=== PATIENT | male | born 1985 | race Caucasian/White ===

== ENCOUNTER 2020-07-07 20:13 | Emergency (ER) | payer SELFPAY ==
--- NOTE | ~2020-07-07 | XR_ITS ---
EXAMINATION: XR chest 2V DATE: 07/07/2020 21:41 INDICATION: Tachycardia and hypertension TECHNIQUE: PA and lateral views of the chest are obtained. COMPARISON: 07/11/2013 FINDINGS: The lungs are free of acute opacities. There is no pleural effusion or pneumothorax. The ca rdiomediastinal silhouette is normal. The visualized bones and soft tissues are unremarkable. IMPRESSION: 1. No acute cardiopulmonary abnormality. Reviewed, dictated and finalized at location A.
[2020-07-07 20:22] VITALS: BP 132/77; PULSE 76; RESP 18; TEMP 37.1; O2SAT 100
--- NOTE | 2020-07-07 20:36 | ECG_ITS ---
Measurements Intervals [place] Rate: 76 P: 59 TN: 136 QRS: 39 QRSD: 94 T: 55 QT: 357 QTc: 402 Interpretive Statements SINUS RHYTHM ST ELEVATION IN DIFFUSE LEADS- PROBABLY EARLY REPOLARIZATION BASELINE ARTIFACT- II, III, AVR, AVL, AVF, V1 BORDERLINE ECG Electronically Signed On 07-08-2020 6:45:27 CDT by Dirk Lopez D.O.
--- NOTE | 2020-07-07 20:37 | ED.DIZZY ---
HPI - Dizziness General Chief Complaint: Dizziness Stated Complaint: dizzy - on new beta julius meds Time Seen by Provider: 07/07/20 20:17 Source: patient Mode of arrival: ambulatory Limitations: no limitations History of Present Illness HPI Narrative: Patient is a 35-year-old male complaining of sudden onset of dizziness that started while at work tonight. Patient states that he recently started a medication called propranolol for his elevated heart rate and thinks that he must have taken 2 doses close to each other which probably causes dizziness. Patient also states that he was having chest discomfort earlier when he was feeling dizzy but now resolved. Patient denies any cough, abdominal pain, nausea, vomiting, diaphoresis, fever or chills Related Data Allergies Allergy/AdvReac Type Severity Reaction Status Date / Time No Known Allergies Allergy Mild Verified 05/06/13 14:54 Review of Systems Review of Systems: All systems reviewed & are unremarkable except as noted in HPI and below Constitutional: Constitutional: Denies body ache(s), Denies chills, Denies excessive sweating, Denies fatigue, Denies fever(s), Denies headache(s), Denies lethargy, Denies malaise, Denies weakness and Denies weight loss Eyes: Eyes: Denies blurry vision, Denies change in vision and Denies loss of vision ENT: Denies ear discharge, Denies headache(s), Denies lip swelling, Denies epistaxis, Denies nasal congestion, Denies neck pain, Denies throat swelling and Denies tongue swelling Cardiovascular: Cardiovascular: Denies diaphoresis, Denies rapid heart rate, Denies edema, Denies irregular heart rhythm, Denies lightheadedness, Denies palpitations, Denies dyspnea and Denies dyspnea on exertion Respiratory: Respiratory: Denies chest congestion, Denies cough, Denies hemoptysis, Denies dyspnea and Denies dyspnea on exertion Gastrointestinal: Gastrointestinal: Denies abdominal pain, Denies melena, Denies hematochezia, Denies diarrhea, Denies nausea, Denies vomiting and Denies hematemesis Musculoskeletal: Musculoskeletal: Denies abnormal gait, Denies deformity, Denies joint swelling, Denies limited range of motion, Denies neck pain and Denies numbness Neurologic: Denies Abnormal speech present, Denies abnormal gait, Denies confusion, Denies headache(s), Denies focal weakness, Denies loss of vision, Denies numbness, Denies Other visual disturbances, Denies Sensory deficit (Neuro) and Denies weakness Psychiatric: Psychiatric: Denies confusion, Denies depression, Denies auditory hallucinations, Denies homicidal ideation and Denies suicidal ideation Endocrine: Endocrine: Denies cold intolerance, Denies excessive sweating, Denies fatigue, Denies heat intolerance and Denies palpitations Hematologic/Lymphatic: Hematologic/Lymphatic: Denies easy bleeding and Denies easy bruising Allergic/Immunologic: Allergic/Immunologic: Denies lip swelling, Denies throat swelling and Denies tongue swelling PMFSH Comments Past medical history: Tachycardia, PTSD Family history: Negative for MA or coronary artery disease Social history: Vapes, non-smoker, no EtOH or drug use. Exam Const: General: cooperative, healthy appearing, comfortable, no acute distress, well developed, alert and awake; No confusion Orientation/consciousness: oriented to person, oriented to place, oriented to time, patient oriented x3 and No confusion Limitations: no limitations HENMT: Head: normal to inspection, normocephalic and atraumatic Ears: hearing grossly normal bilaterally, TM normal on the right and TM normal on the left General nose exam: Normal external nose present, Normal nares present and No nasal discharge present Face and sinus: normal facial exam Mouth: Yes Normal oral and palatal mucosa present, Yes lip normal, Yes tongue normal and Yes oropharynx normal Throat: posterior oropharynx normal, tonsils normal and uvula midline Eyes: General: appearance normal, both eyes and all related structure
--- NOTE | 2020-07-07 21:01 | PC.NURSE ---
pt refused labs and ekg.
[2020-07-07] MEDS: SODIUM CHLORIDE 0.9% IV 1,000 ML 999 ML IV CONT (22:14)
[2020-07-07 22:23] LABS: Basophils Percent Auto 0.4 % (0.2-1.2); Eosinophils Absolute Auto 0.1 K/mm3 (0-0.3); Eosinophils Percent Auto 1.9 % (0-4.4); Hematocrit 41.6 % (42.0-52.0); Hemoglobin 14.1 g/dL (14.0-18.0); Immature Granulocyte Absolute 0.02 K/mm3 (0.00-0.031); Immature Granulocyte Percent A 0.3 % (0-0.5); Lymphocytes Absolute Auto 2.02 K/mm3 (0.9-3.2); Lymphocytes Percent Auto 28.9 % (18.3-44.2); Mean Corpuscular HGB Conc 33.9 g/dl (32-36); Mean Corpuscular Hemoglobin 33.9 pg (26-34); Mean Platelet Volume 10.9 fl (7.4-10.4); Monocytes Absolute Auto 0.6 K/mm3 (0.1-0.6); Monocytes Percent Auto 8.3 % (2.6-8.5); Neutrophils Absolute Auto 4.2 K/mm3 (1.3-6.7); Neutrophils Percent Auto 60.2 % (45.5-73.1); Platelet Count Result 279 k/mm3 (150-375); Red Blood Count 4.16 M/mm3 (4.6-6.20); Red Cell Distribution Width 14.1 % (11.5-14.5)
[2020-07-07 22:38] VITALS: BP 130/74; PULSE 74; RESP 20; O2SAT 98
[2020-07-07 22:46] LABS: Troponin I < 0.012 ng/mL (0.000-0.034)
[2020-07-07 23:06] LABS: Anion Gap 4 mmol/L (8-16); Blood Urea Nitrogen 15 mg/dL (9-20); Calcium 8.4 mg/dL (8.4-10.2); Carbon Dioxide 31 mmol/L (22-30); Chloride 104 mmol/L (98-107); Estimated CRCL calculation 104 ml/min; Estimated Glomerular Filt Rate > 60; Glucose 92 mg/dL (75-110); Potassium 4.2 mmol/L (3.4-5.0); Sodium 139 mmol/L (137-145)
[2020-07-07 23:34] VITALS: BP 131/74; PULSE 72; RESP 20; O2SAT 99
== END 2020-07-07 23:47 | disposition home or self-care (01) ==
PROVIDERS: Emergency Provider Emergency Medicine
DX: R42 Dizziness and giddiness (principal); R07.89 Other chest pain; F17.200 Nicotine dependence, unspecified, uncomplicated
CPT/HCPCS: 36415; 71046; 80048; 84484; 85025; 93005; 96360; 99284; J7030

== ENCOUNTER 2021-04-18 17:40 | Inpatient (IN) | payer MEDICAID, SELFPAY ==
[2021-04-18] VITALS (26 sets, daily range): BP systolic 108–152; BP diastolic 67–99; PULSE 57–74; RESP 13–24; TEMP 36.4; O2SAT 99–100
--- NOTE | ~2021-04-18 | XR_ITS ---
EXAMINATION: XR chest 1V portable EXAM DATE: 04/23/2021 09:04 INDICATION: Pneumothorax follow-up. TECHNIQUE: Portable AP frontal chest x-ray was obtained. Comparison is made to prior examination from 04/22/2021. FINDINGS: Possible identification of the pleural reflection at the left apex, tiny apical pneumothora x. Chest tube remains in position. Some left basilar scarring. Left lower lung zone nodule could be p atient's nipple. The lungs are otherwise clear. There are no pleural effusions. The cardiomediastin al silhouette is within normal limits. The bones and soft tissues are unremarkable. IMPRESSION: 1. Equivocal tiny left apical pneumothorax. Chest tube in position. 2. Left basilar subsegmental atelectasis. Reviewed, dictated and finalized at location B. GER PACKAGING
--- NOTE | ~2021-04-18 | XR_ITS ---
EXAMINATION: XR chest-chest tube insert/pos EXAM DATE: 04/18/2021 19:43 INDICATION: chest tube insertion . TECHNIQUE: Portable AP frontal chest x-ray was obtained. Comparison is made to prior examination from earlier same date. FINDINGS: Interval insertion of small caliber left-sided chest tube projecting over the hemithorax. T here is resolution of the previously seen pneumothorax, no pleural reflection identified. No focal ai rspace disease. Cardiomediastinal silhouette is normal. There are no osseous abnormalities identified . Small amount of left axillary gas. IMPRESSION: Resolution of left pneumothorax following chest tube insertion. Reviewed, dictated and finalized at location G. ICAL EDUCATOR
--- NOTE | ~2021-04-18 | XR_ITS ---
EXAMINATION: XR chest 1V portable EXAM DATE: 04/23/2021 13:43 INDICATION: s/p chest tube removal . TECHNIQUE: Portable AP frontal chest x-ray was obtained. Comparison is made to prior examination from earlier same date. FINDINGS: The left-sided chest tube has been removed. There is a minimal left apical pneumothorax, pl eural reflection has been indicated. Recommend additional follow-up. Small amount of left lower lobe subsegmental atelectasis. Cardiomediastinal silhouette is normal. There are no osseous abnormalities identified. IMPRESSION: Minimal left pneumothorax. Consider follow-up in 6-24 hours. Reviewed, dictated and finalized at location B. RINE PLANT OPERATOR
--- NOTE | ~2021-04-18 | XR_ITS ---
EXAMINATION: XR chest 1V portable EXAM DATE: 04/19/2021 17:50 INDICATION: Chest tube . Pneumothorax. TECHNIQUE: Portable AP frontal chest x-ray was obtained. Comparison is made to prior examination from 04/18/2021. FINDINGS: There is a left-sided chest tube with two side ports identified. The chest tube has retract ed compared to prior examination, but both side port still project over the pleural space. There has been redevelopment of small to moderate-sized left pneumothorax, about 1.5 cm between the pleural ref lections. No right pneumothorax. Small amount of left basilar linear atelectasis. The lungs are otherwise clear . Cardiomediastinal silhouette is normal. There are no osseous abnormalities identified. IMPRESSION: Some retraction of left-sided chest tube, but tip and side-port still within pleural cavi ty. Redevelopment of small to moderate left pneumothorax. Reviewed, dictated and finalized at location . ECTOR WATCH ASSEMBLY IMPRESSION: Some retraction of left-sided chest tube, but tip and side-port sti ll within pleural cavity. Redevelopment of small to moderate left pneumothorax.
--- NOTE | ~2021-04-18 | XR_ITS ---
XR chest-chest tube insert/pos DATE: 04/22/2021 03:30 INDICATION: Pneumothorax, chest tube TECHNIQUE: Portable upright AP chest on 04/22/2021 at 0325 hours COMPARISON: 04/21/2021 portable AP chest at 1024 hours FINDINGS: Left thoracostomy tube tip overlies the left apex. Minimal left pneumothorax. Mild subcutan eous emphysema of the left chest wall. There is mild bibasilar atelectasis, left greater than right. IMPRESSION: Left chest tube; small left pneumothorax, subcutaneous emphysema left chest wall Bibasilar atelectasis, left greater than right Reviewed, dictated and finalized at Location A. Reviewed, dictated and finalized at location A. ARCH PROFESSOR IMPRESSION: Left chest tube; small left pneumothorax, subcutaneous emphysema le ft chest wall Bibasilar atelectasis, left greater than right
--- NOTE | ~2021-04-18 | XR_ITS ---
EXAMINATION: XR chest 2V EXAM DATE: 04/18/2021 18:24 INDICATION: Left Sided Cp Started Today, Hx Spontaneous Pneumothorax . TECHNIQUE: Frontal and lateral projections of the chest obtained and reviewed. Comparison is made to prior examination from 07/07/2020. FINDINGS: There is a large left-sided pneumothorax. Right lung is clear. Cardiomediastinal silhouett e is normal. There are no osseous abnormalities identified. IMPRESSION: Large left-sided pneumothorax. I discussed the thorax with Fernando Dockery MD and Tasneem Russell at 04/18/2021 18:29 TALENT ACQUISITION ADMINISTRATOR. Reviewed, dictated and finalized at location G. NT ACQUISITION ADMINISTRATOR
--- NOTE | ~2021-04-18 | XR_ITS ---
XR chest 1V portable DATE: 04/21/2021 06:36 INDICATION: Left pneumothorax TECHNIQUE: Portable AP chest on 04/21/2021 at 0608 hours COMPARISON: 04/19/2021 portable AP chest at 2306 hours FINDINGS: Left thoracostomy tube is again noted, distal tip overlying lateral left apical region. No pneumothorax is evident. There is mild subcutaneous emphysema of the left chest wall. There is mild infiltrate and/atelectasis in the lower lung zones, primarily on the left. Normal heart size. No pleural effusion. IMPRESSION: Left thoracostomy tube; no detectable pneumothorax Mild subcutaneous emphysema of left chest wall Bibasilar infiltrate and/or atelectasis, primarily on the left Reviewed, dictated and finalized at location A. N PICKER
--- NOTE | ~2021-04-18 | XR_ITS ---
EXAMINATION: XR chest 1V portable EXAM DATE: 04/21/2021 10:37 INDICATION: Chest tube on water seal . TECHNIQUE: Portable AP frontal chest x-ray was obtained. Comparison is made to prior examination from 04/21/2021. FINDINGS: Left-sided chest tube is in position. No pleural reflection/pneumothorax identified. Scatte red left basilar linear atelectasis. Cardiomediastinal silhouette is normal. There are no pleural eff usions. There are no osseous abnormalities identified. IMPRESSION: No evidence of pneumothorax. Chest tube in position. Reviewed, dictated and finalized at location B. TENANCE EQUIPMENT OPERATOR
--- NOTE | ~2021-04-18 | XR_ITS ---
XR chest-chest tube insert/pos DATE: 04/19/2021 23:18 INDICATION: Chest tube placement TECHNIQUE: Portable AP chest on 04/19/2021 2306 hours COMPARISON: 04/19/2021 portable AP chest at 1747 hours FINDINGS: Left thoracostomy tube is then advanced further into the left apical area since 04/19/2021 w ith slight residual left pneumothorax. There is mild subcutaneous emphysema of the left chest and upp er abdominal wall. Normal heart size. No pulmonary vascular congestion or pleural effusion. Mild atelectasis and/or infiltrate in the left lower lung IMPRESSION: Left thoracostomy tube advanced into the left apical area; slight residual left pneumotho rax Reviewed, dictated and finalized at Location A. Reviewed, dictated and finalized at location A. ALMIC TECH IMPRESSION: Left thoracostomy tube advanced into the left apical area; slight r esidual left pneumothorax
--- NOTE | ~2021-04-18 | XR_ITS ---
EXAMINATION: XR chest 1V portable DATE: 04/24/2021 07:31 INDICATION: Left pneumothorax post chest tube removal TECHNIQUE: frontal and lateral views of the chest were obtained. COMPARISON: Chest radiograph dated 04/23/2021 FINDINGS: Negligible residual left pneumothorax at the lateral left upper lung zone projection maximal 2-3 mm p leural separation. Opacity at the left costophrenic angle and at the periphery of the left mid and lo wer lung zone most likely either atelectasis or minimal loculated pleural effusion. Right lung is minesh ar. No pulmonary edema or right-sided pleural effusion or pneumothorax. The cardiomediastinal silhoue tte is normal. Minimal residual subcutaneous gas in the lateral left lower chest wall. IMPRESSION: 1. Tiny with residual left pneumothorax. 2. Opacities at the lateral left mid to lower lung zone which could represent either atelectasis or v olya small loculated left pleural effusion. Reviewed, dictated and finalized at location A. NURSE IMPRESSION: 1. Tiny with residual left pneumothorax. 2. Opacities at the lateral left mid to lower lung zone which could represent e ither atelectasis or very small loculated left pleural effusion.
--- NOTE | 2021-04-18 17:42 | ECG_ITS ---
Measurements Intervals [place] Rate: 64 P: 137 NE: 141 QRS: 129 QRSD: 84 T: 136 QT: 351 QTc: 364 Interpretive Statements SINUS RHYTHM ARM LEADS REVERSED BASELINE ARTIFACT- V5 ATYPICAL ECG Electronically Signed On 04-18-2021 20:03:14 CERTIFIED PHLEBOTOMY TECHNICIAN by Dirk Lopez D.O.
[2021-04-18 18:54] LABS: Basophils Percent Auto 0.5 % (0.2-1.2); Eosinophils Absolute Auto 0.1 K/mm3 (0-0.3); Eosinophils Percent Auto 0.9 % (0-4.4); Hematocrit 42.1 % (42.0-52.0); Hemoglobin 14.4 g/dL (14.0-18.0); Immature Granulocyte Absolute 0.01 K/mm3 (0.00-0.031); Immature Granulocyte Percent A 0.1 % (0-0.5); Lymphocytes Absolute Auto 1.54 K/mm3 (0.9-3.2); Lymphocytes Percent Auto 19.7 % (18.3-44.2); Mean Corpuscular HGB Conc 34.2 g/dl (32-36); Mean Corpuscular Hemoglobin 34.1 pg (26-34); Mean Corpuscular Volume 99.8 fl (80-100); Mean Platelet Volume 10.5 fl (7.4-10.4); Monocytes Absolute Auto 0.5 K/mm3 (0.1-0.6); Monocytes Percent Auto 6.4 % (2.6-8.5); Neutrophils Absolute Auto 5.7 K/mm3 (1.3-6.7); Neutrophils Percent Auto 72.4 % (45.5-73.1); Platelet Count Result 374 k/mm3 (150-375); Red Blood Count 4.22 M/mm3 (4.6-6.20); Red Cell Distribution Width 13.9 % (11.5-14.5); White Blood Count 7.8 K/mm3 (4.5-10.0)
[2021-04-18] MEDS: HYDROmorphone HCL INJ (*CRX) 1 MG/ML SYR IV PUSH ×2 (19:02→23:56)
[2021-04-18 19:06] LABS: Alanine Aminotransferase 37 U/L (4-50); Albumin Level 4.5 g/dL (3.5-5.1); Alkaline Phosphatase 70 U/L (38-126); Anion Gap 8 mmol/L (8-16); Aspartate Amino Transferase 30 U/L (17-59); Bilirubin,Total 0.3 mg/dL (0.2-1.3); Blood Urea Nitrogen 8 mg/dL (9-20); Calcium 9.2 mg/dL (8.4-10.2); Carbon Dioxide 27 mmol/L (22-30); Chloride 104 mmol/L (98-107); Estimated CRCL calculation 107 ml/min; Estimated Glomerular Filt Rate > 60; Glucose 102 mg/dL (65-110); Lipase 47 U/L (23-300); Potassium 4.6 mmol/L (3.4-5.0); Sodium 139 mmol/L (137-145)
[2021-04-18 19:16] LABS: INR 0.9; Prothrombin Time 12.5 Seconds (11.1-14.7)
--- NOTE | 2021-04-18 19:16 | PC.NURSE ---
EDP at bedside to place chest tube at this time. Bedside evaluation completed and patient and side verified.
[2021-04-18 19:17] LABS: Partial Thromboplastin Time 25.3 SECONDS (22.3-36.8)
[2021-04-18 19:18] LABS: Troponin I < 0.012 ng/mL (0.000-0.034)
--- NOTE | 2021-04-18 19:42 | PC.NURSE ---
Report received from USHA Vyas. ERP placed chest tube and xray verified placement. Assumed care of patient at this time.
--- NOTE | 2021-04-18 19:46 | ED.CHESTPAIN ---
HPI - Chest Pain General Chief Complaint: Chest Pain Stated Complaint: chest pain Time Seen by Provider: 04/18/21 18:38 Source: patient and RN notes reviewed Limitations: no limitations History of Present Illness HPI narrative: 36-year-old male with history of spontaneous pneumothorax presents to the emergency department complaining of left-sided chest pain that radiates up into his shoulder that started approximately 2 PM. Patient does have a prior history of pneumothorax approximately 6 years ago. Patient had this taken care of in outside hospital. Patient states at that time he did a prolonged healing due to the long wait collapsing. Patient does admit he is a still a smoker. Patient denies any other significant past medical history. Related Data Allergies Allergy/AdvReac Type Severity Reaction Status Date / Time No Known Allergies Allergy Mild Verified 04/18/21 18:42 Review of Systems Review of Systems: CONSTITUTIONAL: Denies fever, chills, or sweats. EYES: Denies visual changes, redness, or discharge. ENT: Denies rhinorrhea, congestion, sore throat, or otalgia. CARDIOVASCULAR: Denies chest pain, palpitations, or edema. RESPIRATORY: Shortness of breath and left-sided chest pain GASTROINTESTINAL: Denies abdominal pain, nausea, vomiting, or diarrhea. GENITOURINARY: Denies dysuria or hematuria. SKIN: Denies rash or itching. MUSCULOSKELETAL: Denies back pain, joint pain, or myalgia. NEUROLOGIC: Denies headache, numbness, or weakness. Exam Narrative: APPEARANCE: Well appearing, no pain, no distress, well-nourished. HEAD: normocephalic, atraumatic. EYES: PERRLA/EOMI, conjunctivae clear. NOSE: Normal no drainage. THROAT: Pharynx clear, no exudate. NECK: Supple. No adenopathy, no masses. RESPIRATORY: Absent breath sounds on the left. No crepitus or evidence of injury. CARDIOVASCULAR: Regular rate and rhythm without murmurs rubs or gallops. ABDOMINAL: Soft, nontender, nondistended, normal bowel sounds MUSCULOSKELETAL: Moves all extremities. Strength/ROM intact, No edema, No calf tenderness. SKIN: Warm, dry. Normal Color Course Course Emergency Course: Chest x-ray showed a significant left-sided pneumothorax. As detailed in the procedure note exactly was placed in the left chest using the Thal-Quick and Seldinger technique. Repeat chest x-ray showed that the pneumo was resolved. Patient also feels improved after the procedure. Patient was provided medications for pain control postprocedure. Case was discussed with the surgeon residential direct support professional but he felt that the patient would need a VATS procedure due to his previous difficulty with his pneumothorax Case was discussed with both the hospitalist and the cardiothoracic surgeon at [facility] and patient was accepted for transfer. Clinical impression was left-sided pneumothorax with chest tube [facility] did state that a bed should be available after morning discharges. Patient was stable at time of signout Vital Signs Vital signs: Vital Signs Temperature 97.6 F 04/18/21 18:07 Pulse Rate 72 04/18/21 18:07 Respiratory Rate 18 04/18/21 18:07 Blood Pressure 132/83 04/18/21 18:07 Pulse Oximetry 100 04/18/21 18:07 Temperature 97.6 F 04/18/21 18:07 Pulse Rate 64 04/18/21 23:46 Respiratory Rate 21 H 04/18/21 23:46 Blood Pressure 121/80 04/18/21 23:46 Pulse Oximetry 100 04/18/21 23:46 Transfer Transfered to: [facility] Procedures Chest Tube Chest Tube 1: Chest Tube Date: 04/18/21 Chest Tube Time: 19:19 Chest Tube Location: left, mid axillary line and fourth interspace Tube Type: quik thal Anesthetic: lidocaine 1% Amount of anesthesia used (mL): 10 Incision Made With: #11 blade Procedure: seldinger technique Post Procedure: sutured to skin, sterile dressing applied and connected to Pluero Vac Tube Drainage: benz of air Post Procedure CXR?: Yes Post
[2021-04-18] MEDS: HYDROmorphone HCL INJ (*CRX) 1 MG/ML SYR IM (19:52)
--- NOTE | 2021-04-18 20:51 | PC.NURSE ---
Patient requesting nicotine patch. ERP notified.
[2021-04-18] MEDS: NICOTINE (*PBKC) 14 MG PATCH 1 PATCH TRANSDERM (20:58)
[2021-04-18 21:35] LABS: SARS-CoV-2 RNA PCR Negative
--- NOTE | 2021-04-18 22:22 | PC.NURSE ---
@1953 called [facility] transfer center. There are 107 patients on waiting list. @1954 called [facility] Transfer. At capacity Not accepting - this patient does not have a physician he is following in the service requested. @2030 called [facility]- Only accepting established patients of [facility] @[address] [facility] to request transfet.
[2021-04-18 22:26] LABS: Troponin I < 0.012 ng/mL (0.000-0.034)
[2021-04-18] MEDS: SODIUM CHLORIDE 0.9% IV 1,000 ML 125 ML IV CONT (23:57)
[2021-04-19] VITALS (59 sets, daily range): BP systolic 105–156; BP diastolic 55–109; PULSE 60–152; RESP 10–29; O2SAT 98–100
--- NOTE | 2021-04-19 00:29 | PC.NURSE ---
Patient informed this nurse about his home meds and when he takes them. ERP notified.
[2021-04-19] MEDS: HYDROmorphone HCL INJ (*CRX) 1 MG/ML SYR IV PUSH ×4 (05:19→17:29)
--- NOTE | 2021-04-19 09:59 | PC.NURSE ---
[facility] called and no beds available at this time. Pt remains on waiting list.
--- NOTE | 2021-04-19 11:13 | PC.NURSE ---
Patient care report received from USHA Plunkett. All questions answered at this time and mortgage loan underwriter assumes care of patient.
--- NOTE | 2021-04-19 12:39 | PC.NURSE ---
Lunch tray ordered for patient by field underwriter. Ice water given to patient.
--- NOTE | 2021-04-19 17:40 | PC.NURSE ---
Patient stated, My chest tube feels weird and he just wants to make sure it is still in and his lung is still expanded. Chest xray ordered to check chest tube placement.
[2021-04-19] MEDS: NICOTINE (*PBKC) 4 MG GUM PO (18:46)
--- NOTE | 2021-04-19 19:05 | PC.NURSE ---
Fishing Vessel Mate spoke with Dr. Choi regarding repeat chest xray results. Patient remains 100% on RA at this time. Dr. Choi aware of chest xray results, no new orders at this time.
--- NOTE | 2021-04-19 19:55 | PC.NURSE ---
pt reports last PO intake was 1300 today. pt noted to be chewing gum when this RN went to room, RN had pt dispose of gum.
--- NOTE | 2021-04-19 22:30 | PC.NURSE ---
All supplies needed at bedside for chest tube change. Patient is awake and alert at this time. Dr. Gustafson removed old tape around chest tube and cleaned around the chest tube with chlorhexidine. Patient tolerated well.
[2021-04-19] MEDS: fentaNYL CITRATE INJ (*CRX) 100 MCG/2 ML VIAL 50 MCG IV PUSH ×2 (22:37→22:43)
[2021-04-19] MEDS: MIDAZOLAM HCL (*CRX) 2 MG/2 ML VIAL IV PUSH ×2 (22:43→22:49)
--- NOTE | 2021-04-19 23:33 | PC.NURSE ---
Chest tube changed by Dr. Gustafson and placement confirmed by portable xray. Chest tube remains water sealed at this time per Dr. Gustafson verbal order. No bubbling in the chamber noticed with coughing or deep breathing. No constant bubbling noted.
[2021-04-20] VITALS (40 sets, daily range): BP systolic 120–158; BP diastolic 68–101; PULSE 69–117; RESP 16–28; TEMP 36.3–37.3; O2SAT 96–100; BMI 25.4
[2021-04-20] MEDS: NICOTINE (*PBKC) 4 MG GUM PO ×2 (01:25→20:08)
[2021-04-20] MEDS: HYDROmorphone HCL INJ (*CRX) 1 MG/ML SYR IV PUSH ×3 (01:43→08:06)
[2021-04-20] MEDS: ONDANSETRON INJ 4 MG/2 ML VIAL IV PUSH (01:43)
--- NOTE | 2021-04-20 02:39 | PC.NURSE ---
[facility] faxed to 3 med/surg - Room 330 - USHA Gould
--- NOTE | 2021-04-20 02:50 | PC.NURSE ---
Report to USHA Gould.
--- NOTE | 2021-04-20 05:43 | ADMGEN ---
This patient, King Pretty, was admitted to [facility] Surg Room 330-01. Patient/family oriented to hospital policies and general routines including ID bracelet, bed and alarms, visiting hours, pain management, procedures, bathroom and other care routines, personal items, smoking policy, room service/diet, and visiting hours. Information on how to activate the Rapid Response Team has been discussed. Patient/Family are encouraged to report perceived risks to care and to ask questions if they do not understand what they are told or what they should do.
[2021-04-20] MEDS: clonazePAM (*CRX) 0.5 MG TABLET PO ×2 (08:06→17:06)
--- NOTE | 2021-04-20 09:56 | PM.IMHP ---
H&P: HPI History of Present Illness Date/Time: 04/20/21 09:56 Chief Complaint: Chest pain, shortness of breath Narrative: This is a 36-year-old male smoker with a history of a spontaneous pneumothorax 6 years ago. He presented to the emergency department 2 days ago with left-sided chest pain. He reports his pain started when he woke up 2 days ago and felt similar to his previous pneumothorax. He denies any recent trauma or falls. He also reports associated shortness of breath at rest and with activity. He presented to the ER for evaluation. Chest x-ray showed a large left-sided pneumothorax. A quik thal chest tube was placed in the ER with initial resolution of the left-sided pneumothorax, but a repeat chest x-ray yesterday showed some retraction of the chest tube with redevelopment of a small to moderate left pneumothorax. He then had a larger 28 [place] left-sided chest tube placed in the ER. Chest x-ray now shows slight residual left pneumothorax with the chest tube in good position. SARS-CoV-2 PCR test negative on 04/18/21. Attempts were made in the ER to transfer the patient to [facility] for thoracic surgery evaluation, but no beds were available. He is now admitted to the floor and is on the wait list at [facility]. The patient is seen this morning. He reports still having some left-sided chest pain, but improvement in his shortness of breath. His previous spontaneous pneumothorax was about 6 years ago and was treated with a chest tube. He was hospitalized for over a week and did require transfer to a tertiary care facility for evaluation by thoracic surgery. His pleural leak resolved with the chest tube and he never required further surgical intervention. The patient quit smoking cigarettes after this hospitalization, but switched to vaping and has continued this to present. Review of Systems Review of Systems: All systems reviewed & are unremarkable except as noted in HPI and below Constitutional: Constitutional: Reports as per HPI, Denies chills and Denies fever(s) ENT: Reports system reviewed and no additional complaints, except as documented and Denies dizziness Cardiovascular: Cardiovascular: Reports no additional cardiovascular complaints, Reports chest pain and Denies leg edema Respiratory: Respiratory: Reports no additional respiratory complaints, Denies cough and Denies dyspnea Gastrointestinal: Gastrointestinal: Reports no additional gastrointestinal complaints, Denies abdominal pain, Denies change in bowel habits, Denies nausea and Denies vomiting Musculoskeletal: Musculoskeletal: Denies deformity and Denies joint swelling Neurologic: Reports system reviewed and no additional complaints, except as documented, Denies focal weakness, Denies numbness and Denies tingling Psychiatric: Psychiatric: Reports anxiety (controlled with home medications) and Reports other (PTSD, currently on home medications which have been restarted) PMFSH Past Medical History Medical History Anxiety PTSD (post-traumatic stress disorder) Spontaneous pneumothorax Surgical History Surgical History No pertinent past surgical history Family History Family History Father Acute myocardial infarction Mother Hypertension Social History Social History Smoking packs per day: 0.5 Smoking cigarettes per day: 10.0 Smoking status: Current every day smoker Tobacco type: e-cigarettes/vaping Second hand tobacco smoke exposure: No Additional smoking assessment comments: Quit smoking cigarettes 6 years ago Alcohol intake: never Substance use: never Gender identity (if verbalized by the patient): Male Spiritual care concerns: Yes (PTSD) Meds Home Medications and Allergies Home Med
[2021-04-20] MEDS: HYDROcodone/acetaminophen (*CRX) 10-325 MG TABLET 1 TAB PO ×2 (12:48→20:02)
[2021-04-20] MEDS: PROPRANOLOL HCL 10 MG TABLET PO ×2 (12:48→17:05)
[2021-04-20] MEDS: PRAZOSIN HCL 1 MG CAPSULE BY MOUTH ×2 (12:49→17:06)
[2021-04-20] MEDS: ENOXAPARIN 40 MG/0.4 ML SYRINGE SUB-Q (17:07)
[2021-04-20] MEDS: SENNA/DOCUSATE SODIUM TABLET 2 TAB PO (20:02)
[2021-04-21] MEDS: HYDROcodone/acetaminophen (*CRX) 10-325 MG TABLET 1 TAB PO ×4 (02:23→20:25)
[2021-04-21] MEDS: NICOTINE (*PBKC) 4 MG GUM PO ×5 (02:25→23:28)
[2021-04-21 06:00] VITALS: BP 127/75; PULSE 87; RESP 17; TEMP 36.3; O2SAT 99
--- NOTE | 2021-04-21 07:27 | PM.PNGS ---
Progress Note: A&P Assessment and Plan (1) Pneumothorax: Qualifiers: Pneumothorax type: spontaneous, primary Qualified Code(s): J93.11 - Primary spontaneous pneumothorax Code(s): J93.9 - Pneumothorax, unspecified Status: Acute Assessment and Plan: Lung remains fully expanded. No pleural leak seen. Will put chest tube to water seal. Recheck film later this morning. Subjective Subjective Date/Time Seen: 04/21/21 07:27 Patient reports: no new complaints and pain is less Review of Systems Review of Systems: All systems reviewed & are unremarkable except as noted in HPI and below Constitutional: Constitutional: Denies headache(s) Cardiovascular: Cardiovascular: Reports chest pain (From chest tube only) Respiratory: Respiratory: Denies cough and Denies dyspnea Gastrointestinal: Gastrointestinal: Denies abdominal pain Neurologic: Denies confusion and Denies headache(s) Exam Const: General: cooperative, comfortable, no acute distress, alert and awake Nutritional Appearance: overweight Orientation/consciousness: patient oriented x3 Resp: Effort & Inspection: normal respiratory effort, not tachypneic, no use of accessory muscles and other (No pleural leak seen) Auscultation: clear to auscultation bilaterally Objective Data Vital Signs Vital Signs: Vital Signs - 24 hr 04/20/21 08:00 04/20/21 10:58 04/20/21 12:00 Temperature 37.1 C 36.9 C Pulse Rate 91 111 H Respiratory Rate 18 18 Blood Pressure 141/68 H 135/75 Pulse Oximetry 96 98 96 04/20/21 12:48 04/20/21 14:00 04/20/21 17:05 Temperature 36.3 C L Pulse Rate 117 H 88 84 Respiratory Rate 19 Blood Pressure 120/73 Pulse Oximetry 97 04/20/21 22:00 04/21/21 06:00 Temperature 36.5 C 36.3 C L Pulse Rate 88 87 Respiratory Rate 16 17 Blood Pressure 131/76 127/75 Pulse Oximetry 96 99 Intake/Output Intake/Output: Intake & Output 04/18/21 04/19/21 04/20/21 04/21/21 23:59 23:59 23:59 23:59 Intake Total 1000 450 Output Total 400 600 800 Balance 600 -150 -800 Meds/Results Medications: Active Medications Generic Name Dose Route Start Last Admin Trade Name Freq PRN Reason Stop Dose Admin Acetaminophen 500 mg 04/20/21 11:27 Acetaminophen 500 Mg Tablet PO Q6H PRN Mild Pain (1-3) or Fever Hydrocodone Bitart/Acetaminophen 1 tab 04/20/21 09:20 Hydrocodone/Acetaminophen (*Crx) 5-325 Mg Tablet PO Q4H PRN Pain Rated 4-6 Hydrocodone Bitart/Acetaminophen 1 tab 04/20/21 11:27 04/21/21 02:23 Hydrocodone/Acetaminophen (*Crx) 10-325 Mg Tablet PO 1 tab Q6H PRN Administration Pain Rated 7-10 Clonazepam 0.5 mg 04/20/21 09:00 04/20/21 17:06 Clonazepam (*Crx) 0.5 Mg Tablet PO 0.5 mg BID CAREY Administration Enoxaparin Sodium 40 mg 04/21/21 09:00 Enoxaparin 40 Mg/0.4 Ml Syringe SUB-Q DAILY CAREY Mirtazapine 30 mg 04/21/21 04:54 Mirtazapine 30 Mg Tablet PO DAILY PRN .ptsd attack Morphine Sulfate 2 mg 04/20/21 11:27 Morphine Sulfate (*Crx) 2 Mg/Ml Inj IV PUSH Q2H PRN Pain Rated 4-6 Morphine Sulfate 4 mg 04/20/21 11:27 Morphine Sulfate (*Crx) 4 Mg/Ml Inj IV PUSH Q2H PRN Pain Rated 7-10 Naloxone HCl 0.1 mg 04/20/21 11:27 Naloxone Hcl 0.4 Mg/Ml Vial IV PUSH Q2M PRN Opiate Reversal Nicotine Polacrilex 4 mg 04/19/21 17:18 04/21/21 02:25 Nicotine (*Pbkc) 4 Mg Gum PO 4 mg PRN PRN Administration Nicotine Cravings Ondansetron HCl 4 mg 04/20/21 00:08 04/20/21 01:43 Ondansetron Inj 4 Mg/2 Ml Vial IV PUSH 4 mg Q4H PRN Administration Nausea Polyethylene Glycol 17 gm 04/21/21 09:00 Polyethylene Glycol 3350 17 Gm Powd.Pack PO QAM CAREY Prazosin HCl 1 mg 04/20/21 09:00 04/20/21 17:06 Prazosin Hcl 1 Mg Capsule BY MOUTH 1 mg BID CAREY Administration Propranolol HCl 10 mg 04/20/21 09:00 04/20/21 17:05 Propranolol Hcl 10 Mg Tablet PO
[2021-04-21 07:31] LABS: Hematocrit 38.9 % (42.0-52.0); Hemoglobin 13.2 g/dL (14.0-18.0); Mean Corpuscular HGB Conc 33.9 g/dl (32-36); Mean Corpuscular Hemoglobin 33.4 pg (26-34); Mean Corpuscular Volume 98.5 fl (80-100); Mean Platelet Volume 11.2 fl (7.4-10.4); Platelet Count Result 291 k/mm3 (150-375); Red Blood Count 3.95 M/mm3 (4.6-6.20); Red Cell Distribution Width 13.4 % (11.5-14.5); White Blood Count 9.5 K/mm3 (4.5-10.0)
[2021-04-21 07:53] LABS: Anion Gap 10 mmol/L (8-16); Blood Urea Nitrogen 7 mg/dL (9-20); Calcium 8.8 mg/dL (8.4-10.2); Carbon Dioxide 30 mmol/L (22-30); Chloride 94 mmol/L (98-107); Estimated CRCL calculation 99 ml/min; Estimated Glomerular Filt Rate > 60; Glucose 98 mg/dL (65-110); Potassium 3.9 mmol/L (3.4-5.0); Sodium 134 mmol/L (137-145)
[2021-04-21 08:00] VITALS: PULSE 90
[2021-04-21] MEDS: PROPRANOLOL HCL 10 MG TABLET PO ×2 (08:00→16:58)
[2021-04-21] MEDS: clonazePAM (*CRX) 0.5 MG TABLET PO ×2 (08:01→17:00)
[2021-04-21] MEDS: polyethylene glycoL 3350 17 GM POWD.PACK PO (08:01)
[2021-04-21] MEDS: ENOXAPARIN 40 MG/0.4 ML SYRINGE SUB-Q (09:51)
[2021-04-21 14:14] VITALS: BP 118/75; PULSE 83; RESP 18; TEMP 36.8; O2SAT 98
[2021-04-21 16:58] VITALS: PULSE 75
[2021-04-21] MEDS: SENNA/DOCUSATE SODIUM TABLET 2 TAB PO (20:26)
[2021-04-21 22:00] VITALS: BP 123/63; PULSE 79; RESP 16; TEMP 36.4; O2SAT 100
[2021-04-22] MEDS: HYDROcodone/acetaminophen (*CRX) 10-325 MG TABLET 1 TAB PO ×4 (02:40→22:27)
[2021-04-22] MEDS: NICOTINE (*PBKC) 4 MG GUM PO ×3 (02:43→20:55)
[2021-04-22 05:20] VITALS: BP 124/79; PULSE 87; RESP 16; TEMP 36.7; O2SAT 98
[2021-04-22] MEDS: clonazePAM (*CRX) 0.5 MG TABLET PO ×2 (08:30→16:17)
[2021-04-22] MEDS: PROPRANOLOL HCL 10 MG TABLET PO ×2 (08:31→16:17)
[2021-04-22] MEDS: ENOXAPARIN 40 MG/0.4 ML SYRINGE SUB-Q (08:31)
[2021-04-22] MEDS: polyethylene glycoL 3350 17 GM POWD.PACK PO (08:31)
--- NOTE | 2021-04-22 08:48 | PM.PNGS ---
Progress Note: A&P Assessment and Plan (1) Pneumothorax: Qualifiers: Pneumothorax type: spontaneous, primary Qualified Code(s): J93.11 - Primary spontaneous pneumothorax Code(s): J93.9 - Pneumothorax, unspecified Status: Acute Assessment and Plan: patient likely suffered complete pneumothorax when the chest tube became disconnected well and was open to atmospheric pressure. From that standpoint, the fact that the lung has completely re-expanded except for a tiny apical pneumothorax while only being on water seal suction is promising. It suggests that the previous pleural leak causing the initial pneumothorax has likely sealed. None the less, we will hold off on removing the chest tube today and recheck chest x-ray again tomorrow. Most likely remove chest tube tomorrow if no pleural leak seen and pneumothorax same or better. Subjective Subjective Date/Time Seen: 04/22/21 08:48 Patient reports: no new complaints and other ( Patient got up to use commode and chest tube became disconnected from Pleur-Evac tubing.) Interval history: When disconnected, patient became immediately short of breath. Tubing was reconnected and has been taped to stay there more securely. He no longer is short of breath and only has discomfort associated with the chest tube. Review of Systems Review of Systems: All systems reviewed & are unremarkable except as noted in HPI and below Constitutional: Constitutional: Denies chills, Denies fever(s) and Denies headache(s) Cardiovascular: Cardiovascular: Reports chest pain ( Associated with chest tube) Respiratory: Respiratory: Denies cough and Denies dyspnea Neurologic: Denies confusion and Denies headache(s) Exam Resp: Effort & Inspection: normal respiratory effort and other ( No pleural leaks seen again today.) Auscultation: clear to auscultation bilaterally Neuro: General: patient oriented x3, no focal motor deficits and No confusion Extrem: General: no calf tenderness and no edema Objective Data Vital Signs Vital Signs: Vital Signs - 24 hr 04/21/21 14:14 04/21/21 16:58 04/21/21 22:00 Temperature 36.8 C 36.4 C L Pulse Rate 83 75 79 Respiratory Rate 18 16 Blood Pressure 118/75 123/63 Pulse Oximetry 98 100 04/22/21 05:20 Temperature 36.7 C Pulse Rate 87 Respiratory Rate 16 Blood Pressure 124/79 Pulse Oximetry 98 Intake/Output Intake/Output: Intake & Output 01/16/22 01/17/22 01/18/22 01/19/22 23:59 23:59 23:59 23:59 Intake Total 6386 044 9269 Output Total 059 593 6824 420 Balance 794 -781 -366 -420 Meds/Results Medications: Active Medications Generic Name Dose Route Start Last Admin Trade Name Freq PRN Reason Stop Dose Admin Acetaminophen 500 mg 04/20/21 11:27 Acetaminophen 500 Mg Tablet PO Q6H PRN Mild Pain (1-3) or Fever Hydrocodone Bitart/Acetaminophen 1 tab 04/20/21 09:20 Hydrocodone/Acetaminophen (*Crx) 5-325 Mg Tablet PO Q4H PRN Pain Rated 4-6 Hydrocodone Bitart/Acetaminophen 1 tab 04/20/21 11:27 04/22/21 08:30 Hydrocodone/Acetaminophen (*Crx) 10-325 Mg Tablet PO 1 tab Q6H PRN Administration Pain Rated 7-10 Clonazepam 0.5 mg 04/20/21 09:00 04/22/21 08:30 Clonazepam (*Crx) 0.5 Mg Tablet PO 0.5 mg BID CAREY Administration Enoxaparin Sodium 40 mg 04/21/21 09:00 04/22/21 08:31 Enoxaparin 40 Mg/0.4 Ml Syringe SUB-Q 40 mg DAILY CAREY Administration Mirtazapine 30 mg 04/21/21 04:54 Mirtazapine 30 Mg Tablet PO DAILY PRN .ptsd attack Morphine Sulfate 2 mg 04/20/21 11:27 Morphine Sulfate (*Crx) 2 Mg/Ml Inj IV PUSH Q2H PRN Pain Rated 4-6 Morphine Sulfate 4 mg 04/20/21 11:27 Morphine Sulfate (*Crx) 4 Mg/Ml Inj IV PUSH Q2H PRN Pain Rated 7-10 Naloxone HCl 0.1 mg 04/20/21 11:27 Naloxone Hcl 0.4 Mg/Ml Vial IV PUSH Q2M PRN Opiate Reversal Nicotine Polacrilex 4 mg 04/19/21 17:18 04/22/21 02:43
[2021-04-22 16:17] VITALS: BP 130/68; PULSE 84; RESP 16; O2SAT 98
[2021-04-22] MEDS: SENNA/DOCUSATE SODIUM TABLET 2 TAB PO (20:55)
[2021-04-22 21:52] VITALS: BP 134/69; PULSE 73; RESP 16; TEMP 36.3; O2SAT 100
[2021-04-23] MEDS: HYDROcodone/acetaminophen (*CRX) 10-325 MG TABLET 1 TAB PO ×3 (05:09→18:48)
[2021-04-23 05:47] VITALS: BP 126/80; PULSE 75; RESP 16; TEMP 36.1; O2SAT 100
--- NOTE | 2021-04-23 08:17 | PM.PNGS ---
Progress Note: A&P Assessment and Plan (1) Pneumothorax: Qualifiers: Pneumothorax type: spontaneous, primary Qualified Code(s): J93.11 - Primary spontaneous pneumothorax Code(s): J93.9 - Pneumothorax, unspecified Status: Acute Assessment and Plan: No pleural leaks seen again today. Portable chest x-ray is pending. If pneumothorax from yesterday is stable or better, will DC chest tube today. Subjective Subjective Date/Time Seen: 04/23/21 08:17 Patient reports: no new complaints and pain is less Review of Systems Review of Systems: All systems reviewed & are unremarkable except as noted in HPI and below Respiratory: Respiratory: Denies cough and Denies dyspnea Exam Const: General: comfortable and no acute distress; No confusion Orientation/consciousness: patient oriented x3 and No confusion Resp: Effort & Inspection: normal respiratory effort and other (No pleural leak seen) Auscultation: clear to auscultation bilaterally Neuro: General: patient oriented x3, no focal motor deficits and No confusion Extrem: General: no calf tenderness and no edema Objective Data Vital Signs Vital Signs: Vital Signs - 24 hr 04/22/21 16:17 04/22/21 21:52 04/23/21 05:47 Temperature 36.3 C L 36.1 C L Pulse Rate 84 73 75 Respiratory Rate 16 16 16 Blood Pressure 130/68 134/69 126/80 Pulse Oximetry 98 100 100 Intake/Output Intake/Output: Intake & Output 04/20/21 04/21/21 04/22/21 04/23/21 23:59 23:59 23:59 23:59 Intake Total 450 1200 1080 350 Output Total 600 1795 1230 1000 Balance -150 -595 -150 -650 Meds/Results Medications: Active Medications Generic Name Dose Route Start Last Admin Trade Name Freq PRN Reason Stop Dose Admin Acetaminophen 500 mg 04/20/21 11:27 Acetaminophen 500 Mg Tablet PO Q6H PRN Mild Pain (1-3) or Fever Hydrocodone Bitart/Acetaminophen 1 tab 04/20/21 09:20 Hydrocodone/Acetaminophen (*Crx) 5-325 Mg Tablet PO Q4H PRN Pain Rated 4-6 Hydrocodone Bitart/Acetaminophen 1 tab 04/20/21 11:27 04/23/21 05:09 Hydrocodone/Acetaminophen (*Crx) 10-325 Mg Tablet PO 1 tab Q6H PRN Administration Pain Rated 7-10 Clonazepam 0.5 mg 04/20/21 09:00 04/22/21 16:17 Clonazepam (*Crx) 0.5 Mg Tablet PO 0.5 mg BID CAREY Administration Enoxaparin Sodium 40 mg 04/21/21 09:00 04/22/21 08:31 Enoxaparin 40 Mg/0.4 Ml Syringe SUB-Q 40 mg DAILY CAREY Administration Mirtazapine 30 mg 04/21/21 04:54 Mirtazapine 30 Mg Tablet PO DAILY PRN .ptsd attack Morphine Sulfate 2 mg 04/20/21 11:27 Morphine Sulfate (*Crx) 2 Mg/Ml Inj IV PUSH Q2H PRN Pain Rated 4-6 Morphine Sulfate 4 mg 04/20/21 11:27 Morphine Sulfate (*Crx) 4 Mg/Ml Inj IV PUSH Q2H PRN Pain Rated 7-10 Naloxone HCl 0.1 mg 04/20/21 11:27 Naloxone Hcl 0.4 Mg/Ml Vial IV PUSH Q2M PRN Opiate Reversal Nicotine Polacrilex 4 mg 04/19/21 17:18 04/22/21 20:55 Nicotine (*Pbkc) 4 Mg Gum PO 4 mg PRN PRN Administration Nicotine Cravings Ondansetron HCl 4 mg 04/20/21 00:08 04/20/21 01:43 Ondansetron Inj 4 Mg/2 Ml Vial IV PUSH 4 mg Q4H PRN Administration Nausea Polyethylene Glycol 17 gm 04/21/21 09:00 04/22/21 08:31 Polyethylene Glycol 3350 17 Gm Powd.Pack PO 17 gm QAM CAREY Administration Prazosin HCl 1 mg 04/21/21 18:42 Prazosin Hcl 1 Mg Capsule BY MOUTH HS PRN PTSD Propranolol HCl 10 mg 04/20/21 09:00 04/22/21 16:17 Propranolol Hcl 10 Mg Tablet PO 10 mg BID CAREY Administration Senna/Docusate Sodium 2 tab 04/20/21 21:00 04/22/21 20:55 Senna/Docusate Sodium Tablet PO 2 tab HS CAREY Administration Radiology Results: ITS Impressions Chest X-Ray 04/22/21 07:32 IMPRESSION: Left chest tube; small left pneumothorax, subcutaneous emphysema left chest wall Bibasilar atelectasis, left greater than right
[2021-04-23] MEDS: ENOXAPARIN 40 MG/0.4 ML SYRINGE SUB-Q (09:50)
[2021-04-23] MEDS: clonazePAM (*CRX) 0.5 MG TABLET PO ×2 (09:50→17:05)
[2021-04-23 09:51] VITALS: PULSE 64
[2021-04-23] MEDS: PROPRANOLOL HCL 10 MG TABLET PO ×2 (09:51→17:06)
[2021-04-23] MEDS: polyethylene glycoL 3350 17 GM POWD.PACK PO (09:51)
[2021-04-23] MEDS: NICOTINE (*PBKC) 4 MG GUM PO ×3 (10:04→18:49)
[2021-04-23] MEDS: ACETAMINOPHEN 500 MG TABLET PO (10:10)
[2021-04-23 14:00] VITALS: BP 121/74; PULSE 78; RESP 14; TEMP 36.1; O2SAT 98
[2021-04-23 17:06] VITALS: PULSE 64
[2021-04-23] MEDS: SENNA/DOCUSATE SODIUM TABLET 2 TAB PO (21:12)
[2021-04-23 21:45] VITALS: BP 127/79; PULSE 74; RESP 17; TEMP 36.4; O2SAT 100
[2021-04-24] MEDS: HYDROcodone/acetaminophen (*CRX) 10-325 MG TABLET 1 TAB PO ×2 (01:34→08:44)
[2021-04-24] MEDS: NICOTINE (*PBKC) 4 MG GUM PO ×3 (01:37→12:43)
[2021-04-24 05:12] VITALS: BP 130/77; PULSE 75; RESP 16; TEMP 36; O2SAT 99
[2021-04-24] MEDS: polyethylene glycoL 3350 17 GM POWD.PACK PO (08:44)
[2021-04-24] MEDS: ENOXAPARIN 40 MG/0.4 ML SYRINGE SUB-Q (08:44)
[2021-04-24 08:45] VITALS: PULSE 80
[2021-04-24] MEDS: PROPRANOLOL HCL 10 MG TABLET PO (08:45)
[2021-04-24] MEDS: clonazePAM (*CRX) 0.5 MG TABLET PO (08:45)
--- NOTE | 2021-04-24 10:49 | PM.DS ---
DS: Admitting Diagnosis Discharge Date 04/24/2021 Admitting Diagnosis Recurrent left pneumothorax Smoker PTSD and anxiety DS: Discharge Diagnosis Discharge Diagnosis (1) Pneumothorax: Qualifiers: Pneumothorax type: spontaneous, primary Qualified Code(s): J93.11 - Primary spontaneous pneumothorax Code(s): J93.9 - Pneumothorax, unspecified Status: Acute Assessment and Plan: Recurrent pneumothorax, patient unable to be transferred to a facility where thoracic surgery available. Leak has sealed with chest tube placement. Patient to be discharged with plans for outpatient follow-up with thoracic surgery either in [place] or at [facility] where he has been seen by thoracic surgery 6 years ago when he had his initial pneumothorax. (2) Current every day vaping: Code(s): Z72.89 - Other problems related to lifestyle Status: Chronic Assessment and Plan: This patient is strongly advised to quit. He agrees to do so. DS: Summary Hospital Course Hospital Course: Patient presented to the emergency room on April 18, 2021 with a complete left pneumothorax. Initially this responded well to a quik [place]al tube placed by the emergency room physician. Plans were to transfer the patient to a facility with thoracic surgery availability as this was the 2nd time he had a left pneumothorax. The 1st episode was 6 years ago. It was treated in [facility] with several days of the hospital and eventual transfer to [facility]. The leak eventually sealed abdomen is very [place]ist and he was discharged. He had no problems in the ensuing 6 years but has been continuing to smoke via vaping. After the chest tube was placed initially in the emergency room, we were unable to transfer the patient for over 24 hours. The initial small chest tube backed out of the chest and the pneumothorax recurred. Another ER physician placed a 2nd chest tube through the initial opening. This was in good position and the lung fully re-expanded. Patient was admitted to the hospital. He was observed on Pleur-Evac suction for 2 days and then change to water-seal suction. He had a tiny residual pneumothorax that was stable with no evidence of persistent air leak. His chest tube was removed yesterday, 04/23/2021. The tiny pneumothorax persisted but he had no shortness of breath and no worsening of his symptoms. On the day of discharge, 04/24/2021, his chest x-ray again showed a tiny, 1-2 mm residual pneumothorax which was stable and should resolve on its own. He was able to be discharged on 04/24/2021. Time spent discussing smoking cessation with patient: 3 to 10 minutes Status at Discharge Functional status at discharge: independent ambulation Overall status at discharge: patient is progressing back to baseline Time Spent with Patient Time attestation: Total time spent providing and/or coordinating discharge services: Exam Resp: Effort & Inspection: normal respiratory effort, able to speak in complete sentences, no cough, not labored, no retractions, not tachypneic and other (Left chest tube site dressing dry and intact.) Auscultation: clear to auscultation bilaterally, no rales and no rhonchi Discharge Plan Discharge Attending physician on discharge: Manuel Johnson Discharging Clinician: Manuel Johnson Anticipated Discharge Date/Time: 04/24/21 10:59 Patient Disposition: Home, Self-Care Activity: no shower and as tolerated Diet: regular Wound Care Instructions: keep dressing dry Discharge Instructions: Leave left chest dressing dry and intact until Tuesday, April 27, 2020. On Tuesday, May remove dressing and shower. Until Tuesday, patient will need to sponge bath or other form of bathing that leaves the dressing dry and intact. After removing dressing, patient may place bandage over chest tube site daily and p.r.n.. Just a Band-Aid or dry gauze and tape should be sufficient. See Dr. Barber
== END 2021-04-24 13:20 | disposition home or self-care (01) | DRG 143 ==
LOC: ANHED 04-19 21:56 → ANH3MEDSUR 04-20 03:47
PROVIDERS: Emergency Medicine; Admitting Provider Surgery; Emergency Provider Emergency Medicine; Visit Provider Surgery
DX: J93.11 Primary spontaneous pneumothorax (principal); Z20.822 Contact with and (suspected) exposure to COVID-19; F17.290 Nicotine dependence, other tobacco product, uncomplicated; F43.10 Post-traumatic stress disorder, unspecified; Z28.21 Immunization not carried out because of patient refusal; Z79.899 Other long term (current) drug therapy
CPT/HCPCS: 32551; 36415; 71045; 71046; 80048; 80053; 83690; 84484; 85025; 85027; 85610; 85730; 93005; 96361; 96374; 96375; 96376; 99285; A9270; C1729; C9803; G0378; G0379; J1170; J1650; J2250; J2405; J3010; J7030; U0003; U0005

== ENCOUNTER 2021-04-28 09:22 | Outpatient (CLI) | payer SELFPAY ==
--- NOTE | ~2021-04-28 | XR_ITS ---
XR chest 2V 04/28/2021 09:43 Indication: Pneumothorax follow-up Procedure: 2 view chest Comparison: 04/24/2011 Findings: Small left pleural effusion. No definite residual pneumothorax no focal pneumonia, edema. H eart size is normal. No acute osseous abnormality. Impression: 1: Small left pleural effusion. No definite residual pneumothorax identified. Reviewed, dictated and finalized at location B. ADVOCATE Impression: 1: Small left pleural effusion. No definite residual pneumothorax identified.
== END 2021-04-28 09:23 | disposition home or self-care (01) ==
PROVIDERS: Visit Provider Surgery
DX: J93.9 Pneumothorax, unspecified (principal); J90 Pleural effusion, not elsewhere classified
CPT/HCPCS: 71046

== ENCOUNTER 2021-04-29 13:27 | Emergency (ER) | payer MEDICAID, SELFPAY ==
--- NOTE | ~2021-04-29 | XR_ITS ---
EXAMINATION: XR chest 2V DATE: 04/29/2021 13:42 INDICATION: Chest pain. TECHNIQUE: Frontal and lateral views of the chest were obtained. COMPARISON: Chest 2 views 04/28/2021 FINDINGS: There is a tiny left pleural effusion. No pneumonia or pneumothorax. The heart size is norm al. IMPRESSION: 1. Stable tiny left pleural effusion. Reviewed, dictated and finalized at location A. S SUPPORT ENGINEER
--- NOTE | 2021-04-29 13:29 | ECG_ITS ---
Measurements Intervals [place] Rate: 83 P: 50 WI: 130 QRS: 48 QRSD: 75 T: 64 QT: 339 QTc: 400 Interpretive Statements SINUS RHYTHM EARLY PRECORDIAL R/S TRANSITION BASELINE ARTIFACT- I, III, AVR, AVL, AVF, V1, V3-V4 BORDERLINE ECG Electronically Signed On 04-29-2021 13:44:34 [employer]HIBIT CLEANER by Dirk Lopez D.O.
[2021-04-29 13:30] VITALS: BP 142/82; PULSE 102; RESP 16; TEMP 36.6; O2SAT 100
[2021-04-29 13:58] LABS: Basophils Percent Auto 0.5 % (0.2-1.2); Eosinophils Absolute Auto 0.1 K/mm3 (0-0.3); Eosinophils Percent Auto 2.2 % (0-4.4); Hematocrit 40.8 % (42.0-52.0); Hemoglobin 13.7 g/dL (14.0-18.0); Immature Granulocyte Absolute 0.02 K/mm3 (0.00-0.031); Immature Granulocyte Percent A 0.3 % (0-0.5); Lymphocytes Percent Auto 23.4 % (18.3-44.2); Mean Corpuscular HGB Conc 33.6 g/dl (32-36); Mean Corpuscular Hemoglobin 33.9 pg (26-34); Mean Platelet Volume 10.2 fl (7.4-10.4); Monocytes Absolute Auto 0.4 K/mm3 (0.1-0.6); Monocytes Percent Auto 6.9 % (2.6-8.5); Neutrophils Absolute Auto 4.3 K/mm3 (1.3-6.7); Neutrophils Percent Auto 66.7 % (45.5-73.1); Platelet Count Result 403 k/mm3 (150-375); Red Blood Count 4.04 M/mm3 (4.6-6.20); Red Cell Distribution Width 13.8 % (11.5-14.5); White Blood Count 6.4 K/mm3 (4.5-10.0)
[2021-04-29 14:13] LABS: Alanine Aminotransferase 118 U/L (4-50); Albumin Level 4.6 g/dL (3.5-5.1); Alkaline Phosphatase 66 U/L (38-126); Anion Gap 10 mmol/L (8-16); Aspartate Amino Transferase 52 U/L (17-59); Bilirubin,Total 0.4 mg/dL (0.2-1.3); Blood Urea Nitrogen 13 mg/dL (9-20); Calcium 9.4 mg/dL (8.4-10.2); Carbon Dioxide 29 mmol/L (22-30); Chloride 101 mmol/L (98-107); Estimated CRCL calculation 98 ml/min; Estimated Glomerular Filt Rate > 60; Glucose 96 mg/dL (65-110); Lipase 535 U/L (23-300); Potassium 4.1 mmol/L (3.4-5.0); Sodium 140 mmol/L (137-145)
[2021-04-29 14:15] LABS: Prothrombin Time 12.9 Seconds (11.1-14.7)
[2021-04-29 14:16] LABS: Partial Thromboplastin Time 23.4 SECONDS (22.3-36.8)
[2021-04-29 14:42] LABS: Troponin I < 0.012 ng/mL (0.000-0.034)
[2021-04-29 15:34] VITALS: BP 111/54; PULSE 81; TEMP 36.7; O2SAT 100
[2021-04-29 16:20] VITALS: BP 126/77; PULSE 69; PULSE 81; RESP 14; O2SAT 100
--- NOTE | 2021-04-29 16:50 | ED.CHESTPAIN ---
HPI - Chest Pain General Chief Complaint: Chest Pain Stated Complaint: CP Time Seen by Provider: 04/29/21 16:17 Source: patient Mode of arrival: ambulatory Limitations: no limitations History of Present Illness HPI narrative: 36-year-old with a history of recurrent pneumothorax discharged from hospital approximately a week ago here with complaints of left-sided chest pain started few hours ago. He thinks he has another episode of spontaneous pneumothorax. He denies any difficulty in breathing. No history of fever or chills denies any cough MD complaint: chest pain Pertinent past history: other (Spontaneous pneumothorax) Onset (ago): hour(s) (5) Timing of current episode: constant and still present Prior episodes: Yes Pain location: left chest Pain radiation: none Severity: mild Quality: aching Relieving factors: nothing Exacerbating factors: nothing Context: recent surgery (Chest tube for spontaneous pneumothorax) Risk Factors Coronary artery disease risk factors: none Related Data Home Medications Medication Instructions Recorded Confirmed clonazepam 0.5 mg PO BID 04/19/21 04/20/21 prazosin 1 mg HS PRN 04/19/21 04/21/21 propranolol 10 mg PO BID 04/19/21 04/20/21 Remeron 30 mg PO HS PRN 04/20/21 04/20/21 Allergies Allergy/AdvReac Type Severity Reaction Status Date / Time No Known Allergies Allergy Mild Verified 04/18/21 18:42 Review of Systems Constitutional: Constitutional: Reports no additional constitutional complaints Eyes: Eyes: Reports no additional eye complaints ENT: Reports system reviewed and no additional complaints, except as documented Cardiovascular: Cardiovascular: Reports as per HPI Respiratory: Respiratory: Reports no additional respiratory complaints Gastrointestinal: Gastrointestinal: Reports no additional gastrointestinal complaints Musculoskeletal: Musculoskeletal: Reports no additional musculoskeletal complaints Neurologic: Reports system reviewed and no additional complaints, except as documented PMF Past Medical History Medical History Anxiety PTSD (post-traumatic stress disorder) Spontaneous pneumothorax Surgical History Surgical History No pertinent past surgical history Family History Family History Father Acute myocardial infarction Mother Hypertension Social History Social History Smoking packs per day: 0.5 Smoking cigarettes per day: 10.0 Smoking status: Current every day smoker Tobacco type: e-cigarettes/vaping Second hand tobacco smoke exposure: No Additional smoking assessment comments: Quit smoking cigarettes 6 years ago Alcohol intake: never Substance use: never Gender identity (if verbalized by the patient): Male Spiritual care concerns: Yes (PTSD) Exam Narrative: GENERAL: Well-appearing, well-nourished, and in no acute distress. HEAD: Normocephalic, atraumatic. EYES: PERRLA and EOMI. NECK: Supple. CHEST: Clear to auscultation. No respiratory distress. Mild tenderness on palpation. Dressing intact no sign of infection HEART: Regular rate and rhythm. No murmur heard. Normal peripheral pulses. ABDOMEN: Soft, nontender, nondistended, normal active bowel sounds. EXTREMITIES: Normal range of motion. No edema. SKIN: Warm, dry, no rash. NEURO: No focal deficits. Alert and oriented x3. PSYCH: Normal mood and affect. Course Course Emergency Course: Inform patient about his lab work, chest x-ray findings. Pain is most likely postsurgical or from the scar tissue. Advised him to take anti-inflammatory medicine as prescribed. Follow-up with Dr. Johnson as scheduled return to the ER if you are having significant bleeding or increased chest pain. Vital Signs Vital signs: Vital Signs Temperature 36.6 C 04/29/21 13:30 P
[2021-04-29 17:07] VITALS: BP 127/88; PULSE 100; RESP 20; O2SAT 99
== END 2021-04-29 17:08 | disposition home or self-care (01) ==
PROVIDERS: Emergency Medicine; Emergency Provider Family Medicine
DX: R07.89 Other chest pain (principal); F41.9 Anxiety disorder, unspecified; F43.10 Post-traumatic stress disorder, unspecified; F17.290 Nicotine dependence, other tobacco product, uncomplicated; R94.31 Abnormal electrocardiogram [ECG] [EKG]
CPT/HCPCS: 36415; 71046; 80053; 83690; 84484; 85025; 85610; 85730; 93005; 99284

== ENCOUNTER 2021-06-27 16:26 | Emergency (ER) | payer OTHER, SELFPAY ==
[2021-06-27 16:37] VITALS: BP 141/92; PULSE 84; RESP 18; TEMP 36.7; O2SAT 100
[2021-06-27] MEDS: clonazePAM (*CRX) 0.5 MG TABLET PO (17:05)
--- NOTE | 2021-06-27 17:06 | ED.ANXIETY ---
HPI - Anxiety General Chief Complaint: Anxiety Stated Complaint: anxiety Time Seen by Provider: 06/27/21 16:32 Source: patient Mode of arrival: ambulatory Limitations: no limitations History of Present Illness HPI narrative: 36-year-old male with history of recent pneumothorax, PTSD, and anxiety presents today with complaints of anxiety and running out of meds. Patient states he ran out of his clonazepam about a week ago. Is currently feeling very overwhelmed denies SI/HI. Patient fidgety unable to sit still. Denies nausea, abdominal pain, headache. Patient's currently trying to switch from [place] to [place] and is having hard time getting in. Related Data Home Medications Medication Instructions Recorded Confirmed clonazepam 0.5 mg PO BID 04/19/21 05/25/21 prazosin 1 mg HS PRN 04/19/21 05/25/21 propranolol 10 mg PO BID 04/19/21 05/25/21 Remeron 30 mg PO HS PRN 04/20/21 05/25/21 Allergies Allergy/AdvReac Type Severity Reaction Status Date / Time No Known Allergies Allergy Mild Verified 04/18/21 18:42 Review of Systems Review of Systems: CONSTITUTIONAL: Denies fever, chills, or sweats. EYES: Denies visual changes, redness, or discharge. ENT: Denies rhinorrhea, congestion, sore throat, or otalgia. CARDIOVASCULAR: Denies chest pain, palpitations, or edema. RESPIRATORY: Denies cough or dyspnea. GASTROINTESTINAL: Denies abdominal pain, nausea, vomiting, or diarrhea. GENITOURINARY: Denies dysuria or hematuria. SKIN: Denies rash or itching. MUSCULOSKELETAL: Denies back pain, joint pain, or myalgia. NEUROLOGIC: Denies headache, numbness, dizziness, or weakness. PSYCHIATRIC: Anxiety and depression. [facility] Past Medical History Medical History Anxiety PTSD (post-traumatic stress disorder) Spontaneous pneumothorax Surgical History Surgical History No pertinent past surgical history Family History Family History Father Acute myocardial infarction Mother Hypertension Social History Social History (Reviewed 06/27/21 @ 17:08 by MADDIE Andrade Smoking packs per day: 0.5 Smoking cigarettes per day: 10.0 Smoking status: Current every day smoker Tobacco type: e-cigarettes/vaping Second hand tobacco smoke exposure: No Additional smoking assessment comments: Quit smoking cigarettes 6 years ago Alcohol intake: never Substance use: never Gender identity (if verbalized by the patient): Male Spiritual care concerns: Yes (PTSD) Exam Narrative: GENERAL: Well-appearing, well-nourished, and in no acute distress. HEAD: Normocephalic, atraumatic. EYES: PERRLA and EOMI. ENT: Nares clear, no rhinorrhea or epistaxis. Mucous membranes moist. Oropharynx without tonsillar hypertrophy exudate or other lesions. Bilateral TMs pearly reardon nonbulging NECK: Supple. No adenopathy or masses. No carotid bruits or JVD CHEST: Clear to auscultation. No respiratory distress. No wheezes rales or rhonchi HEART: Regular rate and rhythm. No murmur heard. Normal peripheral pulses. ABDOMEN: Soft, nontender, nondistended, normal active bowel sounds. EXTREMITIES: Normal range of motion. No edema. SKIN: Warm, dry, no rash. NEURO: No focal deficits. Alert and oriented x3. PSYCH: Anxious. Unable to sit still. Denies SI HI. Course Reevaluation(s) Reevaluation #1: Patient with improvement. Patient sitting still and is calm upon reassessment. Patient states he feels better wants to go home Date: 06/27/21 Time: 18:08 Vital Signs Vital signs: Vital Signs Temperature 36.7 C 06/27/21 16:37 Pulse Rate 84 06/27/21 16:37 Respiratory Rate 18 06/27/21 16:37 Blood Pressure 141/92 H 06/27/21 16:37 Pulse Oximetry 100 06/27/21 16:37 Temperature 36.7 C 06/27/21 16:37 Pulse Rate 84 06/27/21 16:37 Respiratory Rate 18 06/27/21 16:3
== END 2021-06-27 18:17 | disposition home or self-care (01) ==
PROVIDERS: Emergency Provider Nurse Practitioner Family
DX: F41.9 Anxiety disorder, unspecified (principal); F43.12 Post-traumatic stress disorder, chronic; Z87.891 Personal history of nicotine dependence; T42.4X6A Underdosing of benzodiazepines, initial encounter; Z91.138 Patient's unintentional underdosing of medication regimen for other reason
CPT/HCPCS: 99283; A9270

== ENCOUNTER 2021-07-17 03:20 | Emergency (ER) | payer OTHER, SELFPAY ==
--- NOTE | ~2021-07-17 | XR_ITS ---
EXAMINATION: XR chest 1V portable INDICATION: Shortness of breath TECHNIQUE: Portable AP chest at 0348 hours COMPARISON: 04/29/2021 FINDINGS: The lungs are free of acute opacities. There is no pleural effusion or pneumothorax. The ca rdiomediastinal silhouette is normal. IMPRESSION: 1. No acute cardiopulmonary abnormality. Reviewed, dictated and finalized at location A.
--- NOTE | 2021-07-17 03:24 | ECG_ITS ---
Measurements Intervals [place] Rate: 72 P: 64 [place]: 138 QRS: 59 QRSD: 86 T: 55 QT: 346 QTc: 381 Interpretive Statements SINUS RHYTHM WITH SINUS ARRHYTHMIA EARLY REPOLARIZATION BORDERLINE ECG COMPARED TO ECG 04/29/2021 13:38:28 SINUS ARRHYTHMIA NOW PRESENT Electronically Signed On 07-17-2021 15:45:15 CDT by Santiago Liu M.D.
[2021-07-17 06:18] LABS: Basophils Percent Auto 0.5 % (0.2-1.2); Eosinophils Absolute Auto 0.2 K/mm3 (0-0.3); Eosinophils Percent Auto 1.7 % (0-4.4); Hematocrit 38.1 % (42.0-52.0); Hemoglobin 13.2 g/dL (14.0-18.0); Immature Granulocyte Absolute 0.02 K/mm3 (0.00-0.031); Immature Granulocyte Percent A 0.2 % (0-0.5); Lymphocytes Absolute Auto 2.35 K/mm3 (0.9-3.2); Lymphocytes Percent Auto 27.2 % (18.3-44.2); Mean Corpuscular HGB Conc 34.6 g/dl (32-36); Mean Corpuscular Hemoglobin 34.3 pg (26-34); Mean Platelet Volume 10.4 fl (7.4-10.4); Monocytes Absolute Auto 0.8 K/mm3 (0.1-0.6); Neutrophils Absolute Auto 5.3 K/mm3 (1.3-6.7); Neutrophils Percent Auto 61.4 % (45.5-73.1); Platelet Count Result 355 k/mm3 (150-375); Red Blood Count 3.85 M/mm3 (4.6-6.20); White Blood Count 8.7 K/mm3 (4.5-10.0)
[2021-07-17 06:19] LABS: Alanine Aminotransferase 27 U/L (4-50); Albumin Level 3.6 g/dL (3.5-5.1); Alkaline Phosphatase 61 U/L (38-126); Anion Gap 3 mmol/L (8-16); Aspartate Amino Transferase 31 U/L (17-59); Bilirubin,Total 0.2 mg/dL (0.2-1.3); Blood Urea Nitrogen 18 mg/dL (9-20); Calcium 8.3 mg/dL (8.4-10.2); Carbon Dioxide 30 mmol/L (22-30); Chloride 104 mmol/L (98-107); Estimated Glomerular Filt Rate > 60; Glucose 92 mg/dL (65-110); Potassium 3.9 mmol/L (3.4-5.0); Sodium 137 mmol/L (137-145); Troponin I < 0.012 ng/mL (0.000-0.034)
== END 2021-07-17 05:20 | disposition home or self-care (01) ==
PROVIDERS: Emergency Provider Emergency Medicine
DX: F41.9 Anxiety disorder, unspecified (principal); R07.89 Other chest pain
CPT/HCPCS: 36415; 71045; 80053; 84484; 85025; 93005; 96374; 99284

== ENCOUNTER 2021-07-18 17:07 | Emergency (ER) | payer OTHER, SELFPAY ==
[2021-07-18 17:16] VITALS: BP 145/92; PULSE 85; RESP 18; TEMP 36.6; O2SAT 100
--- NOTE | 2021-07-18 17:22 | ECG_ITS ---
Measurements Intervals [place] Rate: 82 P: 55 [place]: 138 QRS: 48 QRSD: 89 T: 53 QT: 322 QTc: 376 Interpretive Statements SINUS RHYTHM EARLY REPOLARIZATION BORDERLINE ECG COMPARED TO ECG 07/17/2021 03:24:40 NO SIGNIFICANT CHANGES Electronically Signed On 07-19-2021 11:15:37 CDT by Santiago Liu M.D.
--- NOTE | 2021-07-18 17:42 | ED.CHESTPAIN ---
HPI - Chest Pain General Chief Complaint: Chest Pain Stated Complaint: chest pain Time Seen by Provider: 07/18/21 17:23 Source: patient, RN notes reviewed and old records reviewed Mode of arrival: ambulatory Limitations: no limitations History of Present Illness HPI narrative: Patient presents today complaining of left-sided chest pain x3 to 4 days. Describes the pain as squeezing. Patient was seen in the ER at [facility] yesterday and had a full work-up. No note can be reviewed as he states they were on downtime. Labs (unremarkable), chest x-ray (unremarkable), and EKG were reviewed. EKG showed sinus rhythm with sinus arrhythmia. Patient reviewed this on his portal and states he was initially told to follow-up with his PCP, but after reviewing the EKG on his portal and noting that it showed an arrhythmia, he wanted to follow-up today. He was unable to get an appointment with his PCP today as they closed early on Tuesday, so he came to urgent care to follow-up. His symptoms have not changed since yesterday. Currently rates pain 410. Believes they may be due to his anxiety, but is not certain. He takes clonazepam and propranolol for his anxiety and PTSD as well as Remeron at night. He used to take hydroxyzine to help him sleep, which he states helps a lot. States at times he wakes up with spasms in his chest in the mornings. History of spontaneous pneumothoraces x2. Patient vapes. Yesterday he received 1 dose of nitroglycerin per EMS, which did help with his symptoms. MD complaint: chest pain Related Data Home Medications Medication Instructions Recorded Confirmed clonazepam [Klonopin] 0.5 mg PO BID 07/18/21 07/18/21 mirtazapine [Remeron] 45 mg PO HS 07/18/21 07/18/21 propranolol 10 mg PO TID 07/18/21 07/18/21 Allergies Allergy/AdvReac Type Severity Reaction Status Date / Time No Known Allergies Allergy Mild Verified 07/18/21 17:28 Review of Systems Review of Systems: CONSTITUTIONAL: Denies body aches, fever, chills, or sweats. EYES: Denies visual changes, redness, or discharge. ENT: Denies rhinorrhea, congestion, sore throat, or otalgia. CARDIOVASCULAR: Denies palpitations, or edema.+ Chest pain RESPIRATORY: Denies cough or dyspnea. GASTROINTESTINAL: Denies abdominal pain, nausea, vomiting, or diarrhea. GENITOURINARY: Denies dysuria or hematuria. SKIN: Denies rash, itching, or wounds. MUSCULOSKELETAL: Denies back pain, joint pain, or myalgia. NEUROLOGIC: Denies headache, numbness, tingling, or weakness. PSYCH: Denies depression or anxiety. [facility] Past Medical History Medical History Anxiety PTSD (post-traumatic stress disorder) Spontaneous pneumothorax Surgical History Surgical History No pertinent past surgical history Family History Family History Father Acute myocardial infarction Mother Hypertension Social History Social History Smoking packs per day: 0.5 Smoking cigarettes per day: 10.0 Smoking status: Current every day smoker Tobacco type: e-cigarettes/vaping Second hand tobacco smoke exposure: No Additional smoking assessment comments: Quit smoking cigarettes 6 years ago Alcohol intake: never Substance use: never Gender identity (if verbalized by the patient): Male Spiritual care concerns: Yes (PTSD) Comments At time of signature, I have reviewed and agree with nursing past medical, surgical, social and family history unless otherwise noted. Please see nursing chart for further information. There is no relevant family history pertinent to the presenting complaint Exam Narrative: GENERAL: Well-appearing, well-nourished, and in no acute distress. HEAD: Normocephalic, atraumatic. EYES: EOMI. No redness or drainage. [facility]
== END 2021-07-18 17:46 | disposition home or self-care (01) ==
PROVIDERS: Emergency Provider Nurse Practitioner; PCP Nurse Practitioner Family
DX: R07.9 Chest pain, unspecified (principal); F17.290 Nicotine dependence, other tobacco product, uncomplicated; F41.9 Anxiety disorder, unspecified; F43.10 Post-traumatic stress disorder, unspecified
CPT/HCPCS: 93005; 99213; G0463

== ENCOUNTER 2021-09-26 17:01 | Emergency (ER) | payer OTHER, SELFPAY ==
[2021-09-26 17:05] VITALS: BP 143/89; PULSE 100; RESP 20; TEMP 36.7; O2SAT 100
--- NOTE | 2021-09-26 17:20 | ED.ANXIETY ---
HPI - Anxiety General Chief Complaint: Anxiety Stated Complaint: anxiety History of Present Illness HPI narrative: 36-year-old man who presents to the emergency room via EMS for evaluation of anxiety. Patient states he is got a long history of anxiety and PTSD for which she has been medicated on Klonopin for. Patient states she has been evaluated for his acute on chronic anxiety multiple times here recently in the emergency room and was prescribed 60 tablets of Klonopin. Patient states he took his last Klonopin pill at 330 this morning and has been experiencing increased level of anxiety. Patient states he knew he was running out of his Klonopin, so he decided to look for treatment facilities yesterday and was unsuccessful. Denies SI or HI Related Data Home Medications Medication Instructions Recorded Confirmed clonazepam 0.5 mg tablet (Klonopin) 0.5 mg PO BID 07/18/21 07/18/21 mirtazapine 45 mg tablet 45 mg PO HS 07/18/21 07/18/21 propranolol 10 mg tablet 10 mg PO TID 07/18/21 07/18/21 Allergies Allergy/AdvReac Type Severity Reaction Status Date / Time SSRI AdvReac Other Uncoded 09/26/21 17:20 Review of Systems Review of Systems: CONSTITUTIONAL: Denies fever, chills, or sweats. EYES: Denies visual changes, redness, or discharge. ENT: Denies rhinorrhea, congestion, sore throat, or otalgia. CARDIOVASCULAR: Denies chest pain, palpitations, or edema. RESPIRATORY: Denies cough or dyspnea. GASTROINTESTINAL: Denies abdominal pain, nausea, vomiting, or diarrhea. GENITOURINARY: Denies dysuria or hematuria. SKIN: Denies rash or itching. MUSCULOSKELETAL: Denies back pain, joint pain, or myalgia. NEUROLOGIC: Denies headache, numbness, dizziness, or weakness. PSYCHIATRIC: Reports anxiety. [facility] Past Medical History Medical History Anxiety PTSD (post-traumatic stress disorder) Spontaneous pneumothorax Surgical History Surgical History No pertinent past surgical history Family History Family History Father Acute myocardial infarction Mother Hypertension Social History Social History Smoking packs per day: 0.5 Smoking cigarettes per day: 10.0 Smoking status: Current every day smoker Tobacco type: e-cigarettes/vaping Second hand tobacco smoke exposure: No Additional smoking assessment comments: Quit smoking cigarettes 6 years ago Alcohol intake: never Substance use: never Substance use type: does not use Gender identity (if verbalized by the patient): Male Spiritual care concerns: Yes (PTSD) Exam Narrative: GENERAL: Well-appearing, well-nourished, and in no acute distress. HEAD: Normocephalic, atraumatic. EYES: PERRLA and EOMI. CHEST: Clear to auscultation. No respiratory distress. No wheezes rales or rhonchi HEART: Regular rate and rhythm. No murmur heard. Normal peripheral pulses. ABDOMEN: Soft, nontender, nondistended, normal active bowel sounds. EXTREMITIES: Normal range of motion. No edema. SKIN: Warm, dry, no rash. NEURO: No focal deficits. Alert and oriented x3. PSYCH: Anxious and tearful. Course Vital Signs Vital signs: Vital Signs Temperature 36.7 C 09/26/21 17:05 Pulse Rate 100 09/26/21 17:05 Respiratory Rate 20 09/26/21 17:05 Blood Pressure 143/89 H 09/26/21 17:05 Pulse Oximetry 100 09/26/21 17:05 Oxygen Delivery Room Air 09/26/21 17:05 Temperature 36.7 C 09/26/21 17:05 Pulse Rate 100 09/26/21 17:05 Respiratory Rate 20 09/26/21 17:05 Blood Pressure 143/89 H 09/26/21 17:05 Pulse Oximetry 100 09/26/21 17:05 Oxygen Delivery Room Air 09/26/21 17:05 Discharge Plan Discharge Clinical Impression: Acute anxiety, Panic disorder Patient Disposition: Home, Self-Care Condition: Stab
[2021-09-26] MEDS: LORazepam (*CRX) 1 MG TABLET PO (17:30)
== END 2021-09-26 17:52 | disposition home or self-care (01) ==
LOC: ANHED 17:39
PROVIDERS: Emergency Provider Nurse Practitioner Family; PCP Nurse Practitioner Family
DX: F41.0 Panic disorder [episodic paroxysmal anxiety] (principal); F17.290 Nicotine dependence, other tobacco product, uncomplicated
CPT/HCPCS: 99283; A9270

== ENCOUNTER 2021-09-28 21:34 | Emergency (ER) | payer OTHER, SELFPAY ==
--- NOTE | ~2021-09-28 | XR_ITS ---
EXAMINATION: XR chest 2V 09/29/2021 01:22 INDICATION: Chest pain. Pneumonia. PROCEDURE: 2 view chest COMPARISON: Comparison to multiple prior studies sequentially, with oldest reviewed study dated 04/24. FINDINGS: The lungs are clear. The cardiomediastinal silhouette is within normal limits. There are no pleural effusions. There is no pneumothorax suspected. IMPRESSION: 1: NO ACUTE CARDIOPULMONARY DISEASE. Reviewed, dictated and finalized at location A.
--- NOTE | 2021-09-28 21:38 | ECG_ITS ---
Measurements Intervals [place] Rate: 97 P: 54 HI: 112 QRS: 45 QRSD: 85 T: 31 QT: 358 QTc: 455 Interpretive Statements SINUS RHYTHM WITH SHORT HI INTERVAL NONSPECIFIC T-WAVE ABNORMALITY Electronically Signed On 09-29-2021 10:53:50 CDT by Jose Wallace M.D.
[2021-09-28 21:40] VITALS: BP 143/75; PULSE 100; RESP 18; O2SAT 100
--- NOTE | 2021-09-28 21:43 | ED.CHESTPAIN ---
HPI - Chest Pain General Chief Complaint: Chest Pain Stated Complaint: CP History of Present Illness HPI narrative: 36-year-old male with history of spontaneous pneumothorax, anxiety and hypertension presenting to the emergency department for evaluation of some left-sided chest pain. Patient states approximate 230 he began developing some left-sided chest pain at work. Patient states the pain is constant. Patient states he did have some radiation of the pain up into his neck. Patient denies any associated lightheaded dizziness nausea vomiting or diaphoresis. 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 Patient denies any other prior cardiac history. Patient states he does have a history of anxiety and did have anxiety a few days ago and was evaluated emergency department. Patient states he was not having any chest pain with that. Patient does have history high cholesterol states he is making changes to his diet. Patient is not on any medications for this. Patient denies any prior history of PE or DVT. Related Data Home Medications Medication Instructions Recorded Confirmed clonazepam 0.5 mg tablet (Klonopin) 0.5 mg PO BID 07/18/21 07/18/21 mirtazapine 45 mg tablet 45 mg PO HS 07/18/21 07/18/21 propranolol 10 mg tablet 10 mg PO TID 07/18/21 07/18/21 Allergies Allergy/AdvReac Type Severity Reaction Status Date / Time SSRI AdvReac Other Uncoded 09/26/21 17:20 Review of Systems Review of Systems: CONSTITUTIONAL: Denies fever, chills, or sweats. EYES: Denies visual changes, redness, or discharge. ENT: Denies rhinorrhea, congestion, sore throat, or otalgia. CARDIOVASCULAR: See HPI RESPIRATORY: Denies cough or dyspnea. GASTROINTESTINAL: Denies abdominal pain, nausea, vomiting, or diarrhea. GENITOURINARY: Denies dysuria or hematuria. SKIN: Denies rash or itching. MUSCULOSKELETAL: Denies back pain, joint pain, or myalgia. NEUROLOGIC: Denies headache, numbness, or weakness. PSYCHIATRIC: Denies anxiety or depression. [facility] Past Medical History Medical History Anxiety PTSD (post-traumatic stress disorder) Spontaneous pneumothorax Surgical History Surgical History No pertinent past surgical history Family History Family History Father Acute myocardial infarction Mother Hypertension Social History Social History Smoking packs per day: 0.5 Smoking cigarettes per day: 10.0 Smoking status: Current every day smoker Tobacco type: e-cigarettes/vaping Second hand tobacco smoke exposure: No Additional smoking assessment comments: Quit smoking cigarettes 6 years ago Alcohol intake: never Substance use: never Substance use type: does not use Gender identity (if verbalized by the patient): Male Spiritual care concerns: Yes (PTSD) Exam Narrative: APPEARANCE: Well appearing, no pain, no distress, well-nourished. HEAD: normocephalic, atraumatic. EYES: PERRLA/EOMI, conjunctivae clear. NOSE: Normal no drainage NECK: Supple. No adenopathy, no masses. RESPIRATORY: Airway patent, respirations nonlabored. Clear to auscultation bilaterally, no rales, rhonchi, wheezing. CARDIOVASCULAR: Regular rate and rhythm without murmurs rubs or gallops. ABDOMINAL: Soft, nontender, nondistended, normal bowel sounds MUSCULOSKELETAL: Moves all extremities. Strength/ROM intact, No edema, No calf tenderness. NEURO: Alert. Cranial nerves II through XII intact. Grossly intact SKIN: Warm, dry. Normal Color PSYCHIATRIC: Normal affect/mood. Course Course Emergency Course: X-ray shows no acute cardiopulmonary normality. EKG shows normal sinus rhythm. Patient had negative seria
[2021-09-28 21:56] LABS: Basophils Percent Auto 0.4 % (0.2-1.2); Eosinophils Absolute Auto 0.2 K/mm3 (0-0.3); Eosinophils Percent Auto 2.3 % (0-4.4); Hematocrit 41.5 % (42.0-52.0); Hemoglobin 14.2 g/dL (14.0-18.0); Immature Granulocyte Absolute 0.02 K/mm3 (0.00-0.031); Immature Granulocyte Percent A 0.3 % (0-0.5); Lymphocytes Percent Auto 35.8 % (18.3-44.2); Mean Corpuscular HGB Conc 34.2 g/dl (32-36); Mean Corpuscular Hemoglobin 33.8 pg (26-34); Mean Corpuscular Volume 98.8 fl (80-100); Mean Platelet Volume 10.1 fl (7.4-10.4); Monocytes Absolute Auto 0.6 K/mm3 (0.1-0.6); Monocytes Percent Auto 7.8 % (2.6-8.5); Neutrophils Absolute Auto 4.2 K/mm3 (1.3-6.7); Neutrophils Percent Auto 53.4 % (45.5-73.1); Platelet Count Result 313 k/mm3 (150-375); Red Cell Distribution Width 13.3 % (11.5-14.5); White Blood Count 7.8 K/mm3 (4.5-10.0)
[2021-09-28 22:01] VITALS: PULSE 85; O2SAT 100
[2021-09-28 22:07] LABS: INR 1.1; Partial Thromboplastin Time 24.5 SECONDS (22.3-36.8); Prothrombin Time 13.9 Seconds (11.1-14.7)
[2021-09-28 22:10] LABS: Alanine Aminotransferase 18 U/L (6-50); Albumin Level 4.3 g/dL (3.5-5.1); Alkaline Phosphatase 67 U/L (38-126); Anion Gap 5 mmol/L (8-16); Aspartate Amino Transferase 27 U/L (17-59); Bilirubin,Total 0.1 mg/dL (0.2-1.3); Blood Urea Nitrogen 13 mg/dL (9-20); Calcium 8.7 mg/dL (8.4-10.2); Carbon Dioxide 29 mmol/L (22-30); Chloride 103 mmol/L (98-107); Estimated Glomerular Filt Rate > 60; Glucose 86 mg/dL (65-110); Lipase 103 U/L (23-300); Potassium 3.8 mmol/L (3.4-5.0); Sodium 137 mmol/L (137-145)
[2021-09-28 22:22] LABS: Troponin I < 0.012 ng/mL (0.000-0.034)
[2021-09-28] MEDS: ASPIRIN 81 MG CHEWABLE TABLET 324 MG PO (22:23)
[2021-09-28] MEDS: NITROGLYCERIN SL 0.4 MG TABLET SUBLINGUAL (22:24)
[2021-09-28 22:25] VITALS: BP 140/75; PULSE 76; RESP 20; O2SAT 100
[2021-09-29 01:08] LABS: Troponin I < 0.012 ng/mL (0.000-0.034)
[2021-09-29 01:49] VITALS: BP 142/76; PULSE 68; RESP 18; O2SAT 98
== END 2021-09-29 01:50 | disposition home or self-care (01) ==
PROVIDERS: Emergency Provider Emergency Medicine; PCP Nurse Practitioner Family
DX: R07.89 Other chest pain (principal); I10 Essential (primary) hypertension; E78.00 Pure hypercholesterolemia, unspecified; F41.9 Anxiety disorder, unspecified; R94.31 Abnormal electrocardiogram [ECG] [EKG]; F43.10 Post-traumatic stress disorder, unspecified; F17.290 Nicotine dependence, other tobacco product, uncomplicated
CPT/HCPCS: 36415; 71046; 80053; 83690; 84484; 85025; 85610; 85730; 93005; 99284; A9270

== ENCOUNTER 2021-10-09 14:41 | Emergency (ER) | payer OTHER, SELFPAY ==
[2021-10-09 14:59] VITALS: BP 152/90; PULSE 106; RESP 20; TEMP 36.9; O2SAT 100
--- NOTE | 2021-10-09 15:30 | ED.GENADULT ---
HPI - General Adult General Chief complaint: Unspecified Stated complaint: out of meds Time Seen by Provider: 10/09/21 15:10 Source: patient Mode of arrival: ambulatory Limitations: no limitations History of Present Illness HPI narrative: This is a 36 year old male that presents to the ER for medication refill. Reports he is out of his Clonazepam and Mirtazapine. He has been trying to get into a psychiatrist. Has an appointment at the beginning of November. Denies chest pain or shortness of breath. Related Data Home Medications Medication Instructions Recorded Confirmed clonazepam 0.5 mg tablet (Klonopin) 0.5 mg PO BID 07/18/21 07/18/21 mirtazapine 45 mg tablet 45 mg PO HS 07/18/21 07/18/21 propranolol 10 mg tablet 10 mg PO TID 07/18/21 07/18/21 Allergies Allergy/AdvReac Type Severity Reaction Status Date / Time SSRI AdvReac Other Uncoded 09/26/21 17:20 Review of Systems Review of Systems: CONSTITUTIONAL: Denies fever CARDIOVASCULAR: Denies chest pain RESPIRATORY: Denies dyspnea. All systems reviewed & are unremarkable except as noted in HPI and below PMFSH Past Medical History Medical History Anxiety PTSD (post-traumatic stress disorder) Spontaneous pneumothorax Surgical History Surgical History No pertinent past surgical history Family History Family History Father Acute myocardial infarction Mother Hypertension Social History Social History Smoking packs per day: 0.5 Smoking cigarettes per day: 10.0 Smoking status: Current every day smoker Tobacco type: e-cigarettes/vaping Second hand tobacco smoke exposure: No Additional smoking assessment comments: Quit smoking cigarettes 6 years ago Alcohol intake: never Substance use: never Substance use type: does not use Gender identity (if verbalized by the patient): Male Spiritual care concerns: Yes (PTSD) Exam Narrative: GENERAL: Well-appearing, well-nourished, and in no acute distress. HEAD: Normocephalic, atraumatic. EYES: EOMI. CHEST: No respiratory distress. HEART: Regular rate EXTREMITIES: Normal range of motion. No edema. SKIN: Warm, dry, no rash. NEURO: No focal deficits. Alert and oriented x3. PSYCH: Anxious Course Vital Signs Vital signs: Vital Signs Temperature 98.4 F 10/09/21 14:59 Pulse Rate 106 H 10/09/21 14:59 Respiratory Rate 20 10/09/21 14:59 Blood Pressure 152/90 H 10/09/21 14:59 Pulse Oximetry 100 10/09/21 14:59 Oxygen Delivery Room Air 10/09/21 14:59 Temperature 98.4 F 10/09/21 14:59 Pulse Rate 106 H 10/09/21 14:59 Respiratory Rate 20 10/09/21 14:59 Blood Pressure 152/90 H 10/09/21 14:59 Pulse Oximetry 100 10/09/21 14:59 Oxygen Delivery Room Air 10/09/21 14:59 Medical Decision Making MDM Narrative Medical decision making narrative: Patient presents to the emergency department for medication refill. No focalizing complaints other than some anxiety. He has no thoughts of harming himself. Will be given a short course of his medications. Instructed to follow-up with his psychiatrist and primary doctor. He was given warnings to return to the ER Vital Signs Vital Signs: Vital Signs Temperature 98.4 F 10/09/21 14:59 Pulse Rate 106 H 10/09/21 14:59 Respiratory Rate 10/09/21 14:59 Blood Pressure 152/90 H 10/09/21 14:59 Pulse Oximetry 100 10/09/21 14:59 Oxygen Delivery Room Air 10/09/21 14:59 Temperature 98.4 F 10/09/21 14:59 Pulse Rate 106 H 10/09/21 14:59 Respiratory Rate 20 10/09/21 14:59 Blood Pressure 152/90 H 10/09/21 14:59 Pulse Oximetry 100 10/09/21 14:59 Oxygen Delivery Room Air 10/09/21 14:59 Critical Care Time Critical Care Time Critical Care Time: N
== END 2021-10-09 16:46 | disposition home or self-care (01) ==
PROVIDERS: Emergency Provider Emergency Medicine; PCP Emergency Medicine
DX: F41.9 Anxiety disorder, unspecified (principal); F43.10 Post-traumatic stress disorder, unspecified; F17.290 Nicotine dependence, other tobacco product, uncomplicated
CPT/HCPCS: 99281

== ENCOUNTER 2021-10-21 16:26 | Emergency (ER) | payer OTHER, SELFPAY ==
[2021-10-21 16:30] VITALS: BP 163/94; PULSE 102; RESP 20; TEMP 36.4; O2SAT 100
--- NOTE | 2021-10-21 16:36 | ECG_ITS ---
Measurements Intervals [place] Rate: 96 P: 56 [place]: 125 QRS: 59 QRSD: 86 T: 59 QT: 314 QTc: 398 Interpretive Statements SINUS RHYTHM NORMAL ECG Electronically Signed On 10-21-2021 22:41:48 CDT by Dirk Lopez D.O.
[2021-10-21 16:59] LABS: Basophils Percent Auto 0.5 % (0.2-1.2); Eosinophils Absolute Auto 0.1 K/mm3 (0-0.3); Eosinophils Percent Auto 0.7 % (0-4.4); Hematocrit 45.2 % (42.0-52.0); Hemoglobin 15.2 g/dL (14.0-18.0); Immature Granulocyte Absolute 0.03 K/mm3 (0.00-0.031); Immature Granulocyte Percent A 0.3 % (0-0.5); Lymphocytes Absolute Auto 1.63 K/mm3 (0.9-3.2); Lymphocytes Percent Auto 18.6 % (18.3-44.2); Mean Corpuscular HGB Conc 33.6 g/dl (32-36); Mean Corpuscular Hemoglobin 33.6 pg (26-34); Mean Platelet Volume 10.3 fl (7.4-10.4); Monocytes Absolute Auto 0.6 K/mm3 (0.1-0.6); Monocytes Percent Auto 6.3 % (2.6-8.5); Neutrophils Absolute Auto 6.5 K/mm3 (1.3-6.7); Neutrophils Percent Auto 73.6 % (45.5-73.1); Platelet Count Result 360 k/mm3 (150-375); Red Blood Count 4.52 M/mm3 (4.6-6.20); Red Cell Distribution Width 14.2 % (11.5-14.5); White Blood Count 8.8 K/mm3 (4.5-10.0)
[2021-10-21 17:07] LABS: Acetaminophen < 10 ug/mL (10-30); Ethanol < 10 mg/dL (<10); Salicylate < 1.0 mg/dL (2-20)
[2021-10-21 17:09] LABS: Appearance Urine Clear (Clear); Bilirubin Urine Negative (Negative); Blood Urine Negative (Negative); Color Urine Yellow (Yellow); Glucose Urine UA Negative (Negative); Ketones Urine Negative (Negative); Leukocyte Esterase Ur Negative LEU/UL (Negative); Nitrate Urine Negative (Negative); Protein Urine Negative (Negative); Specific Grav Ur >= 1.030 (1.001-1.035); Urobilinogen Urine 0.2 mg/dL (<2.0); pH Urine 5.5 (5.0-9.0)
[2021-10-21 17:15] LABS: Albumin Level 4.7 g/dL (3.5-5.1); Alkaline Phosphatase 67 U/L (38-126); Anion Gap 12 mmol/L (8-16); Aspartate Amino Transferase 31 U/L (17-59); Bilirubin,Total 0.2 mg/dL (0.2-1.3); Blood Urea Nitrogen 12 mg/dL (9-20); Calcium 9.3 mg/dL (8.4-10.2); Carbon Dioxide 21 mmol/L (22-30); Chloride 105 mmol/L (98-107); Estimated CRCL calculation 95 ml/min; Estimated Glomerular Filt Rate > 60; Glucose 129 mg/dL (65-110); Potassium 3.9 mmol/L (3.4-5.0); Sodium 138 mmol/L (137-145)
[2021-10-21 17:20] LABS: Mucus Urine Few /lpf; WBC Urine 0-3 /hpf
[2021-10-21 17:24] LABS: Amphetamine Screen Urine Negative (Negative); Barbiturate Screen Urine Negative (Negative); Benzodiazepines Screen Urine Negative (Negative); Cannabinoid Screen Urine Positive (Negative); Cocaine Screen Urine Negative (Negative); Methadone Screen Urine Negative (Negative); Opiate Screen Urine Negative (Negative); Phencyclidine Screen Urine Negative (Negative)
[2021-10-21 17:25] LABS: Add Urine Microscopic? YES
[2021-10-21 17:29] LABS: Alanine Aminotransferase 46 U/L (6-50)
--- NOTE | 2021-10-21 17:33 | ED.GENADULT ---
HPI - General Adult General Chief complaint: Psychiatric Symptoms Stated complaint: PSYCH REFERRAL REQUESTED Time Seen by Provider: 10/21/21 16:34 History of Present Illness HPI narrative: 36-year-old male presenting to the emergency department for evaluation of worsening anxiety depression, difficulty trying to secure outpatient follow-up and running out of his psychiatric meds. Patient states that he has had follow-up with his primary care physician and they are helping to fill his clonazepam his hydroxyzine and his mirtazapine. Patient does have history of depression and PTSD. Patient denies any current homicidal or suicidal ideation. Patient presented hoping to secure expedited outpatient follow-up. Related Data Home Medications Medication Instructions Recorded Confirmed clonazepam 0.5 mg tablet (Klonopin) 0.5 mg PO BID 07/18/21 07/18/21 mirtazapine 45 mg tablet 45 mg PO HS 07/18/21 07/18/21 propranolol 10 mg tablet 10 mg PO TID 07/18/21 07/18/21 Allergies Allergy/AdvReac Type Severity Reaction Status Date / Time SSRI AdvReac Other Uncoded 09/26/21 17:20 Review of Systems Review of Systems: CONSTITUTIONAL: Denies fever, chills, or sweats. EYES: Denies visual changes, redness, or discharge. ENT: Denies rhinorrhea, congestion, sore throat, or otalgia. CARDIOVASCULAR: Denies chest pain, palpitations, or edema. RESPIRATORY: Denies cough or dyspnea. GASTROINTESTINAL: Denies abdominal pain, nausea, vomiting, or diarrhea. GENITOURINARY: Denies dysuria or hematuria. SKIN: Denies rash or itching. MUSCULOSKELETAL: Denies back pain, joint pain, or myalgia. NEUROLOGIC: Denies headache, numbness, or weakness. PSYCHIATRIC: See HPI [facility] Past Medical History Medical History Anxiety PTSD (post-traumatic stress disorder) Spontaneous pneumothorax Surgical History Surgical History No pertinent past surgical history Family History Family History Father Acute myocardial infarction Mother Hypertension Social History Social History Smoking packs per day: 0.5 Smoking cigarettes per day: 10.0 Smoking status: Current every day smoker Tobacco type: e-cigarettes/vaping Second hand tobacco smoke exposure: No Additional smoking assessment comments: Quit smoking cigarettes 6 years ago Alcohol intake: never Substance use: never Substance use type: unknown Gender identity (if verbalized by the patient): Male Spiritual care concerns: Yes (PTSD) Exam Narrative: APPEARANCE: Well appearing, no pain, no distress, well-nourished. HEAD: normocephalic, atraumatic. EYES: PERRLA/EOMI, conjunctivae clear. NOSE: Normal no drainage NECK: Supple. No adenopathy, no masses. RESPIRATORY: Airway patent, respirations nonlabored. Clear to auscultation bilaterally, no rales, rhonchi, wheezing. CARDIOVASCULAR: Regular rate and rhythm without murmurs rubs or gallops. ABDOMINAL: Soft, nontender, nondistended, normal bowel sounds MUSCULOSKELETAL: Moves all extremities. Strength/ROM intact, No edema, No calf tenderness. NEURO: Alert. Cranial nerves II through XII intact. Grossly intact SKIN: Warm, dry. Normal Color PSYCHIATRIC: Flat affect Course Course Emergency Course: Patient was evaluated by the crisis counselor and was deemed appropriate for discharge to home. Patient prefers to not be admitted as inpatient. Crisis will help to secure follow-up for the patient as outpatient. Patient's psychiatric medications were refilled. Reevaluation(s) Reevaluation #1: Patient is medically cleared to be evaluated by the crisis counselor and inpatient psychiatric placement as needed. Vital Signs Vital signs: Vital Signs Temperature 97.6 F 10/21/21 16:30 Pulse Rate 102 H 10/21/21 16
[2021-10-21 19:27] LABS: SARS-CoV-2 RNA PCR Negative
[2021-10-21 21:27] VITALS: BP 146/99; PULSE 84; RESP 16; TEMP 36.7; O2SAT 98
== END 2021-10-21 21:27 | disposition home or self-care (01) ==
PROVIDERS: Emergency Provider Emergency Medicine; PCP Emergency Medicine
DX: F41.9 Anxiety disorder, unspecified (principal); Z20.822 Contact with and (suspected) exposure to COVID-19; Z76.0 Encounter for issue of repeat prescription
CPT/HCPCS: 36415; 80053; 80307; 81001; 84443; 85025; 93005; 99284; C9803; U0003; U0005

== ENCOUNTER 2021-10-22 11:33 | Emergency (ER) | payer OTHER, SELFPAY ==
[2021-10-22 11:36] VITALS: BP 140/89; PULSE 98; RESP 16; TEMP 37.1; O2SAT 100
--- NOTE | 2021-10-22 12:32 | ED.GENADULT ---
HPI - General Adult General Chief complaint: Unspecified Stated complaint: wants work note, seen yesterday Time Seen by Provider: 10/22/21 12:18 Source: patient Mode of arrival: ambulatory Limitations: no limitations History of Present Illness HPI narrative: Patient is a 36-year-old male who presents the ED for medical release. Patient was seen in the ED yesterday for a medication refill for his psychiatric medications. He is trying to get into see a psychiatrist to routinely have his medications refilled. He was evaluated by crisis workers yesterday in ED, who put him on a 2-week wait list to go into an inpatient program with [facility]. Patient presents to the ED today due to needing a work note to say that he can return to work for the 2 weeks while he is on the wait list. He tried to obtain this from his PCP, Dr. Mcmullen, today but was referred here for further evaluation. Patient works at a [employer]. He does feel comfortable returning to work. He is currently on light duty at work and would like to remain at light duty. He has been taking his medications as prescribed and denies any issues with this. He denies any SI, HI, AVH. No other concerns. Related Data Home Medications Medication Instructions Recorded Confirmed clonazepam 0.5 mg tablet (Klonopin) 0.5 mg PO BID 07/18/21 07/18/21 mirtazapine 45 mg tablet 45 mg PO HS 07/18/21 07/18/21 propranolol 10 mg tablet 10 mg PO TID 07/18/21 07/18/21 Allergies Allergy/AdvReac Type Severity Reaction Status Date / Time SSRI AdvReac Other Uncoded 09/26/21 17:20 Review of Systems Review of Systems: CONSTITUTIONAL: Denies fever, chills, or sweats. CARDIOVASCULAR: Denies chest pain. RESPIRATORY: Denies dyspnea. GASTROINTESTINAL: Denies abdominal pain. PSYCHIATRIC: Reports anxiety and depression. Denies SI, HI, AVH. All systems reviewed & are unremarkable except as noted in HPI and below PMFSH Past Medical History Medical History Anxiety PTSD (post-traumatic stress disorder) Spontaneous pneumothorax Surgical History Surgical History No pertinent past surgical history Family History Family History Father Acute myocardial infarction Mother Hypertension Social History Social History Smoking packs per day: 0.5 Smoking cigarettes per day: 10.0 Smoking status: Current every day smoker Tobacco type: e-cigarettes/vaping Second hand tobacco smoke exposure: No Additional smoking assessment comments: Quit smoking cigarettes 6 years ago Alcohol intake: never Substance use: never Substance use type: unknown Gender identity (if verbalized by the patient): Male Spiritual care concerns: Yes (PTSD) Exam Narrative: GENERAL: Well appearing, well-nourished, non-toxic, in no acute distress. HEAD: Normocephalic, atraumatic. EYES: PERRL/EOMI, conjunctivae clear bilaterally. NECK: Supple. No adenopathy, no masses. RESPIRATORY: Airway patent, respirations nonlabored. CARDIOVASCULAR: Regular rate and rhythm without murmurs, rubs, or gallops. Peripheral pulses 2+ and equal bilaterally. MUSCULOSKELETAL: Moves all extremities. Strength/ROM intact without gross deformities. SKIN: Warm, dry, normal color. No rashes. NEURO: A&O X3. Speech clear. Cranial nerves II-XII grossly intact. Steady gait. No ataxic movements. PSYCHIATRIC: Anxious appearing, mildly flat affect. Normal interaction. Course Vital Signs Vital signs: Vital Signs Temperature 98.8 F 10/22/21 11:36 Pulse Rate 98 10/22/21 11:36 Respiratory Rate 16 10/22/21 11:36 Blood Pressure 140/89 10/22/21 11:36 Pulse Oximetry 100 10/22/21 11:36 Oxygen Delivery Room Air 10/22/21 11:36 Temperature 98.8 F 10/22/21 11:36 Pulse Rate 98 10/22/21 11:3
== END 2021-10-22 13:06 | disposition home or self-care (01) ==
PROVIDERS: Emergency Provider General Practice; PCP Emergency Medicine
DX: Z02.89 Encounter for other administrative examinations (principal); F41.9 Anxiety disorder, unspecified; F32.A Depression, unspecified; F43.10 Post-traumatic stress disorder, unspecified; F17.290 Nicotine dependence, other tobacco product, uncomplicated
CPT/HCPCS: 99281

== ENCOUNTER 2022-04-06 14:38 | Emergency (ER) | payer OTHER, SELFPAY ==
--- NOTE | ~2022-04-06 | XR_ITS ---
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 Comparison: 09/21/2021. RESULT: Lines, tubes, and devices: None. Lungs and pleura: Clear. Cardiomediastinal silhouette: Stable. Other: No acute osseous or upper abdominal finding. IMPRESSION: No acute cardiopulmonary process. Reviewed, dictated and finalized at location K. ARIAL CLERK
--- NOTE | 2022-04-06 14:38 | ECG_ITS ---
Measurements Intervals Taylor Rate: 83 P: 46 IA: 112 QRS: 59 QRSD: 93 T: 62 QT: 355 QTc: 418 Interpretive Statements SINUS RHYTHM WITH SHORT IA INTERVAL BASELINE ARTIFACT- V2-V3 BORDERLINE ECG COMPARED TO ECG 10/21/2021 17:02:23 NO SIGNIFICANT CHANGES Electronically Signed On 04-06-2022 16:24:11 INTERNET ASSESSOR by Dirk Lopez D.O.
[2022-04-06 14:42] VITALS: BP 138/79; PULSE 95; RESP 20; TEMP 36.7; O2SAT 100
[2022-04-06 15:02] LABS: Basophils Percent Auto 0.4 % (0.2-1.2); Eosinophils Absolute Auto 0.1 K/mm3 (0-0.3); Eosinophils Percent Auto 1.3 % (0-4.4); Hematocrit 40.7 % (42.0-52.0); Hemoglobin 13.9 g/dL (14.0-18.0); Immature Granulocyte Absolute 0.01 K/mm3 (0.00-0.031); Immature Granulocyte Percent A 0.2 % (0-0.5); Lymphocytes Absolute Auto 1.68 K/mm3 (0.9-3.2); Lymphocytes Percent Auto 30.4 % (18.3-44.2); Mean Corpuscular HGB Conc 34.2 g/dl (32-36); Mean Corpuscular Hemoglobin 33.2 pg (26-34); Mean Corpuscular Volume 97.1 fl (80-100); Mean Platelet Volume 10.5 fl (7.4-10.4); Monocytes Absolute Auto 0.4 K/mm3 (0.1-0.6); Monocytes Percent Auto 6.7 % (2.6-8.5); Neutrophils Absolute Auto 3.4 K/mm3 (1.3-6.7); Platelet Count Result 352 k/mm3 (150-375); Red Blood Count 4.19 M/mm3 (4.6-6.20); Red Cell Distribution Width 14.1 % (11.5-14.5); White Blood Count 5.5 K/mm3 (4.5-10.0)
[2022-04-06 15:14] LABS: Alanine Aminotransferase 21 U/L (6-50); Albumin Level 4.6 g/dL (3.5-5.1); Alkaline Phosphatase 73 U/L (38-126); Anion Gap 8 mmol/L (8-16); Aspartate Amino Transferase 25 U/L (17-59); Bilirubin,Total 0.4 mg/dL (0.2-1.3); Blood Urea Nitrogen 11 mg/dL (9-20); Calcium 8.9 mg/dL (8.4-10.2); Carbon Dioxide 28 mmol/L (22-30); Chloride 102 mmol/L (98-107); Estimated CRCL calculation 99 ml/min; Estimated Glomerular Filt Rate > 60; Glucose 95 mg/dL (65-110); Lipase 46 U/L (23-300); Potassium 3.8 mmol/L (3.4-5.0); Sodium 138 mmol/L (137-145)
[2022-04-06 15:16] LABS: Prothrombin Time 13.2 Seconds (11.1-14.7)
[2022-04-06 15:17] LABS: Partial Thromboplastin Time 25.5 SECONDS (22.3-36.8)
[2022-04-06 15:25] LABS: Troponin I < 0.012 ng/mL (0.000-0.034)
== END 2022-04-06 16:48 | disposition left against medical advice (07) ==
LOC: ANHED 17:09
PROVIDERS: Emergency Provider Emergency Medicine; PCP Emergency Medicine
DX: R07.9 Chest pain, unspecified (principal)
CPT/HCPCS: 36415; 71046; 80053; 83690; 84484; 85025; 85610; 85730; 93005; 99199

== ENCOUNTER 2022-05-14 13:49 | Emergency (ER) | payer OTHER, SELFPAY ==
[2022-05-14 14:03] VITALS: BP 141/83; PULSE 101; RESP 20; TEMP 36.5; O2SAT 100
--- NOTE | 2022-05-14 14:26 | ED.GENADULT ---
HPI - General Adult General Chief complaint: Extremity Problem,Nontraumatic Stated complaint: shoulder pain Time Seen by Provider: 05/14/22 14:17 Source: patient Mode of arrival: ambulatory Limitations: no limitations History of Present Illness HPI narrative: Patient presents today stating he woke up this morning with severe right shoulder and neck pain. States he had a a very severe panic attack yesterday which sent him home from work. States he was tensed up so much he believes that this caused his symptoms today. Denies numbness or tingling in the arms or hands. He currently rates his pain 6/10, which increases significantly with any movement of the neck or right arm. He has taken aspirin today without relief. Patient has history of anxiety and PTSD for which he takes clonazepam and, hydroxyzine, mirtazapine, and venlafaxine. Patient works at the local [employer]. Related Data Home Medications Medication Instructions Recorded Confirmed clonazepam 0.5 mg tablet (Klonopin) 0.5 mg PO BID 07/18/21 05/14/22 clonazepam 0.5 mg tablet 0.5 mg PO PRN PRN Panic Attack(S) 05/14/22 05/14/22 clonidine HCl 0.2 mg tablet 0.2 mg PO BID 05/14/22 05/14/22 venlafaxine 37.5 mg 37.5 mg PO DAILY 05/14/22 05/14/22 capsule,extended release 24 hr Allergies Allergy/AdvReac Type Severity Reaction Status Date / Time No Known Allergies Allergy Verified 05/14/22 14:13 Review of Systems Review of Systems: CONSTITUTIONAL: Denies body aches, fever, chills, or sweats. EYES: Denies visual changes, redness, or discharge. ENT: Denies rhinorrhea, congestion, sore throat, or otalgia. CARDIOVASCULAR: Denies chest pain, palpitations, or edema. RESPIRATORY: Denies cough or dyspnea. GASTROINTESTINAL: Denies abdominal pain, nausea, vomiting, or diarrhea. GENITOURINARY: Denies dysuria or hematuria. SKIN: Denies rash, itching, or wounds. MUSCULOSKELETAL:+ right neck and shoulder pain NEUROLOGIC: Denies headache, numbness, tingling, or weakness. PSYCH: Denies depression or anxiety. [facility] Past Medical History Medical History Anxiety PTSD (post-traumatic stress disorder) Spontaneous pneumothorax Surgical History Surgical History No pertinent past surgical history Family History Family History Father Acute myocardial infarction Mother Hypertension Social History Social History Smoking packs per day: 0.5 Smoking cigarettes per day: 10.0 Smoking status: Current every day smoker Tobacco type: e-cigarettes/vaping Second hand tobacco smoke exposure: No Additional smoking assessment comments: Quit smoking cigarettes 6 years ago Alcohol intake: never Substance use: never Substance use type: unknown Gender identity (if verbalized by the patient): Male Spiritual care concerns: Yes (PTSD) Comments At time of signature, I have reviewed and agree with nursing past medical, surgical, social and family history unless otherwise noted. Please see nursing chart for further information. There is no relevant family history pertinent to the presenting complaint Exam Narrative: GENERAL: Well-appearing, well-nourished HEAD: Normocephalic, atraumatic. EYES: EOMI. No redness or drainage. Conjunctivae normal. ENT: Mucous membranes pink and moist. NECK: No bony tenderness of the neck. Patient has significant paraspinal muscle tenderness on the right that extends across throughout trapezius to the shoulder. Patient has somewhat limited range of motion of the neck due to pain and spasm. Patient has 45 degree abduction and overhead reach due to pain. He will not attempt internal or external rotation due to pain. Distal sensation intact. Capillary refill normal. Radial pulse normal. 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
== END 2022-05-14 14:38 | disposition home or self-care (01) ==
PROVIDERS: Emergency Provider Nurse Practitioner
DX: M43.6 Torticollis (principal); F17.290 Nicotine dependence, other tobacco product, uncomplicated; F41.9 Anxiety disorder, unspecified; F43.10 Post-traumatic stress disorder, unspecified
CPT/HCPCS: 99213; G0463

== ENCOUNTER 2022-05-16 17:36 | Emergency (ER) | payer OTHER, SELFPAY ==
--- NOTE | ~2022-05-16 | XR_ITS ---
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 HX spontaneous pneumothorax Comparison: 04/06/2022. RESULT: Lines, tubes, and devices: None. Lungs and pleura: Clear. Cardiomediastinal silhouette: Stable. Other: No acute osseous or upper abdominal finding. IMPRESSION: No acute cardiopulmonary process. Reviewed, dictated and finalized at location K. FF EXPERT
[2022-05-16 17:43] VITALS: BP 141/87; PULSE 91; RESP 20; TEMP 37; O2SAT 100
[2022-05-16] MEDS: KETOROLAC 30 MG/ML VIAL (*BKC) IV PUSH (18:30)
--- NOTE | 2022-05-16 18:31 | ED.GENADULT ---
HPI - General Adult General Chief complaint: Unspecified Stated complaint: side pain when breathing Time Seen by Provider: 05/16/22 18:01 History of Present Illness HPI narrative: Patient is a 37-year-old male who presents ER with left-sided chest pain. Anterior. Worse with deep breath. Sudden onset prior to arrival. No cough or dyspnea. Has history of spontaneous pneumothorax and is concerned that this may be what is occurring. Reports it is different though because he is having more pain with breathing in. Reports had an anxiety attack last night where his hands and shoulders locked up. He is slightly anxious at this time. Denies fevers or chills or sweats. No productive cough. No hemoptysis. No lower extremity swelling or calf pain. No long distance travel. Related Data Home Medications Medication Instructions Recorded Confirmed clonazepam 0.5 mg tablet (Klonopin) 0.5 mg PO BID 07/18/21 05/14/22 clonazepam 0.5 mg tablet 0.5 mg PO PRN PRN Panic Attack(S) 05/14/22 05/14/22 clonidine HCl 0.2 mg tablet 0.2 mg PO BID 05/14/22 05/14/22 venlafaxine 37.5 mg 37.5 mg PO DAILY 05/14/22 05/14/22 capsule,extended release 24 hr Allergies Allergy/AdvReac Type Severity Reaction Status Date / Time No Known Allergies Allergy Verified 05/16/22 17:41 Review of Systems Review of Systems: All systems reviewed & are unremarkable except as noted in HPI and below Constitutional: Constitutional: Denies chills, Denies fatigue and Denies fever(s) Cardiovascular: Cardiovascular: Reports chest pain, Denies rapid heart rate, Denies irregular heart rhythm and Denies leg edema Respiratory: Respiratory: Denies cough, Reports pain on inspiration and Denies dyspnea Gastrointestinal: Gastrointestinal: Denies abdominal pain, Denies nausea and Denies vomiting [facility] Past Medical History Medical History Anxiety PTSD (post-traumatic stress disorder) Spontaneous pneumothorax Surgical History Surgical History No pertinent past surgical history Family History Family History Father Acute myocardial infarction Mother Hypertension Social History Social History Smoking packs per day: 0.5 Smoking cigarettes per day: 10.0 Smoking status: Current every day smoker Tobacco type: e-cigarettes/vaping Second hand tobacco smoke exposure: No Additional smoking assessment comments: Quit smoking cigarettes 6 years ago Alcohol intake: never Substance use: never Substance use type: unknown Gender identity (if verbalized by the patient): Male Spiritual care concerns: Yes (PTSD) Exam Narrative: GENERAL: Well-appearing, well-nourished, and in no acute distress. HEAD: Normocephalic, atraumatic. NECK: Supple. CHEST: Clear to auscultation. No respiratory distress. No palpation left anterior chest wall inferior to the pectoralis major. HEART: Regular rate and rhythm. Normal peripheral pulses. ABDOMEN: Soft, nontender, nondistended. EXTREMITIES: Normal range of motion. No edema. SKIN: Warm, dry, no rash. NEURO: Alert and oriented x3. PSYCH: Normal mood and affect. Course Vital Signs Vital signs: Vital Signs Temperature 98.6 F 05/16/22 17:43 Pulse Rate 91 05/16/22 17:43 Respiratory Rate 20 05/16/22 17:43 Blood Pressure 141/87 H 05/16/22 17:43 Pulse Oximetry 100 05/16/22 17:43 Oxygen Delivery Room Air 05/16/22 17:43 Temperature 98.6 F 05/16/22 17:43 Pulse Rate 91 05/16/22 17:43 Respiratory Rate 20 05/16/22 17:43 Blood Pressure 141/87 H 05/16/22 17:43 Pulse Oximetry 100 05/16/22 17:43 Oxygen Delivery Room Air 05/16/22 17:43 Medical Decision Making Vital Signs Vital Signs: Vital Signs Temperature 98.6 F 05/16/22 17:43 Pulse
[2022-05-16 18:40] LABS: Basophils Percent Auto 0.3 % (0.2-1.2); Eosinophils Percent Auto 0.3 % (0-4.4); Hematocrit 41.8 % (42.0-52.0); Hemoglobin 14.4 g/dL (14.0-18.0); Immature Granulocyte Absolute 0.03 K/mm3 (0.00-0.031); Immature Granulocyte Percent A 0.4 % (0-0.5); Immature Platelet Fraction Pct 4.5 % (0.9-11.2); Lymphocytes Absolute Auto 1.53 K/mm3 (0.9-3.2); Lymphocytes Percent Auto 22.9 % (18.3-44.2); Mean Corpuscular HGB Conc 34.4 g/dl (32-36); Mean Corpuscular Hemoglobin 34.3 pg (26-34); Mean Corpuscular Volume 99.5 fl (80-100); Mean Platelet Volume 10.7 fl (7.4-10.4); Monocytes Absolute Auto 0.5 K/mm3 (0.1-0.6); Monocytes Percent Auto 7.3 % (2.6-8.5); Neutrophils Absolute Auto 4.6 K/mm3 (1.3-6.7); Neutrophils Percent Auto 68.8 % (45.5-73.1); Platelet Count Result 352 k/mm3 (150-375); Red Cell Distribution Width 14.6 % (11.5-14.5); White Blood Count 6.7 K/mm3 (4.5-10.0)
[2022-05-16 18:54] LABS: Platelet Estimate Adequate (Adequate); Schistocytes None Seen (NORMAL)
[2022-05-16 19:20] LABS: Alanine Aminotransferase 18 U/L (6-50); Albumin Level 4.5 g/dL (3.5-5.1); Alkaline Phosphatase 67 U/L (38-126); Anion Gap 6 mmol/L (8-16); Aspartate Amino Transferase 22 U/L (17-59); Bilirubin,Total 0.5 mg/dL (0.2-1.3); Blood Urea Nitrogen 9 mg/dL (9-20); Calcium 8.5 mg/dL (8.4-10.2); Carbon Dioxide 27 mmol/L (22-30); Chloride 105 mmol/L (98-107); Estimated CRCL calculation 109 ml/min; Estimated Glomerular Filt Rate > 60; Glucose 89 mg/dL (65-110); Potassium 4.2 mmol/L (3.4-5.0); Sodium 138 mmol/L (137-145)
[2022-05-16 19:21] LABS: INR 1.1; Prothrombin Time 13.8 Seconds (11.1-14.7)
[2022-05-16 19:22] LABS: Partial Thromboplastin Time 25.4 SECONDS (22.3-36.8)
[2022-05-16 19:25] LABS: D Dimer < 0.27 ug/mL (<0.48)
[2022-05-16 21:30] VITALS: BP 132/81; PULSE 58; RESP 16; O2SAT 100
== END 2022-05-16 21:31 | disposition home or self-care (01) ==
PROVIDERS: Emergency Provider Emergency Medicine
DX: R07.89 Other chest pain (principal); F41.9 Anxiety disorder, unspecified; F43.10 Post-traumatic stress disorder, unspecified; Z87.891 Personal history of nicotine dependence
CPT/HCPCS: 36415; 71046; 80053; 85025; 85055; 85380; 85610; 85730; 96374; 99284; J1885

== ENCOUNTER 2022-06-08 14:19 | Emergency (ER) | payer OTHER, SELFPAY ==
[2022-06-08 14:24] VITALS: BP 113/66; PULSE 88; RESP 16; TEMP 36.2; O2SAT 100
[2022-06-08 14:29] VITALS: BP 113/66; PULSE 88; RESP 16; TEMP 36.2; O2SAT 100
--- NOTE | 2022-06-08 14:43 | ED.GENADULT ---
HPI - General Adult General Chief complaint: Medical Clearance Stated complaint: Well Check Time Seen by Provider: 06/08/22 14:43 Source: patient Mode of arrival: ambulatory Limitations: no limitations History of Present Illness HPI narrative: 37-year-old male presents for well check. Patient is traveling from [place] to [place] on a bus. States he will be traveling through the [facility]. Reports history of spontaneous pneumothorax twice. Was told with his last pneumothorax to avoid planes and altitude changes for 6 months. States it has been approximately 1 year since his last pneumothorax. He is concerned that he may give a another pneumothorax when traveling through [facility] on the past. Patient has a history of anxiety. is on anxiety medications. States that he does not currently have a psychiatrist due to them moving out of state. He went to [facility] not but is unable to get a new appointment with a psychiatrist prior to leaving for trip. Is concerned that his anxiety is going to be high when traveling. All systems reviewed and negative except as noted above. Related Data Home Medications Medication Instructions Recorded Confirmed hydroxyzine HCl 50 mg tablet 100 mg PO QID 06/08/22 06/08/22 Allergies Allergy/AdvReac Type Severity Reaction Status Date / Time No Known Allergies Allergy Verified 06/08/22 14:27 Review of Systems Review of Systems: CONSTITUTIONAL: Denies fever, chills, or sweats. EYES: Denies visual changes, redness, or discharge. ENT: Denies rhinorrhea, congestion, sore throat, or otalgia. CARDIOVASCULAR: Denies chest pain, palpitations, or edema. RESPIRATORY: Denies cough or dyspnea. GASTROINTESTINAL: Denies abdominal pain, nausea, vomiting, or diarrhea. GENITOURINARY: Denies dysuria or hematuria. SKIN: Denies rash or itching. MUSCULOSKELETAL: Denies back pain, joint pain, or myalgia. NEUROLOGIC: Denies headache, numbness, or weakness. PSYCHIATRIC: Denies anxiety or depression. All other systems reviewed are negative, except as documented in HPI. [facility] Past Medical History Medical History Anxiety PTSD (post-traumatic stress disorder) Spontaneous pneumothorax Surgical History Surgical History No pertinent past surgical history Family History Family History Father Acute myocardial infarction Mother Hypertension Social History Social History Smoking packs per day: 0.5 Smoking cigarettes per day: 10.0 Smoking status: Current every day smoker Tobacco type: e-cigarettes/vaping Second hand tobacco smoke exposure: No Additional smoking assessment comments: Quit smoking cigarettes 6 years ago Alcohol intake: never Substance use: never Substance use type: unknown Gender identity (if verbalized by the patient): Male Spiritual care concerns: Yes (PTSD) Comments At time of signature, agree with nursing past medical, surgical, social and family history. There is no relevant family history pertinent to the presenting complaint. Exam Narrative: GENERAL: This is a well-nourished, well-developed patient, in no apparent distress. HEAD: normocephalic, atraumatic. EYES: PERRL. Sclera clear/white. Vision is grossly intact. EARS: External ears normal NOSE: External nose normal NECK: Neck supple, non-tender without lymphadenopathy, masses or thyromegaly. CARDIOVASCULAR: Regular rate and rhythm without murmurs, gallops, or rubs. RESPIRATORY: Clear to auscultation. Breath sounds equal bilaterally. No wheezes, rales, or rhonchi. SKIN: warm, Dry, intact with no suspicious lesions or rash, good texture and turgor. NEURO: awake, alert, and oriented to person, place and time. There were no obvious focal neurologic abnormal
== END 2022-06-08 14:56 | disposition home or self-care (01) ==
PROVIDERS: Emergency Provider Nurse Practitioner Family
DX: Z04.89 Encounter for examination and observation for other specified reasons (principal); F41.9 Anxiety disorder, unspecified; F17.290 Nicotine dependence, other tobacco product, uncomplicated
CPT/HCPCS: 99211; G0463